=== PATIENT | female | born 1965 | race Hispanic/Latino ===

== ENCOUNTER 2020-11-20 10:16 | Emergency (ER) | payer BC, SELFPAY ==
--- OUTSIDE RECORDS SUMMARY | 2020-11-20 10:19 | XMS REPORT | Continuity of Care Document ---
:1965 Author Organization [facility] t Address [address] [place] [address] Care Team Providers Name Role Phone Unavailable Unavailable Unavailable Problems This patient has no known problems. Allergies, Adverse Reactions, Alerts This patient has no known allergies or adverse reactions. Medications Ordered Filled Start Stop Current Ordering Indication Dosage Frequency Signature Comments Components Source Medication Medication Date Date Medication? Clinician (SIG) Name Name Labetalol Labetalol Yes River [address] [facility] HCl HCl [facility] Lisinopril/ Lisinopril/ Yes River [address] [facility] Hctz Hctz Johnson once daily [facility] Multivitami Multivitami Yes River not [facility] n n Johnson defined [facility] Procedures This patient has no known procedures. Encounters Start End Encounter Admission Attending Care Care Encounter Source Date/Time Date/Time Type Type Clinicians Facility Department ID 2020-07-06 2020-07-06 Outpatient [facility] [id number] [facility] 2020-06-14 2020-06-14 Out[facility] [id number] [facility] 2019-10-27 2019-10-27 [facility] [id number] [facility] 11:51:00 11:51:00 [facility] 2019-10-25 2019-10-25 [facility] [id number] [facility] 09:30:00 09:30:00 [facility] [place] Clin[facility] 2019-10-24 2019-10-24 [facility] [id number] [facility] 15:45:00 15:45:00 [facility] [place] [facility] 2019-10-24 2019-10-24 [facility] [id number] [facility] 14:40:00 14:40:00 [facility] [place] [facility] 2019-08-23 2019-08-23 [facility] [id number] [facility] 13:30:00 13:30:00 [facility] [place] [facility] Results This patient has no known results.
[2020-11-20 11:21] LABS: Absolute Lymphocytes (CBC) 2.4 K/uL (0.7-4.9); Basophils % 0.7 % (0-1.3); Hematocrit 40.7 % (36.0-45.0); Lymphocytes % 17.8 % (15.3-44.8); MPV 8.1 fL (7.6-11.3); RBC Red Blood Cell Count 4.66 M/uL (3.86-4.86)
[2020-11-20] MEDS ORDERED: MAGNES/ALUMIN/SIMET 30ML UCUP ONE (11:23)
[2020-11-20] MEDS ORDERED: ONDANSETRON 4 MG/2 ML VIAL ONE (11:23)
[2020-11-20] MEDS ORDERED: LIDOCAINE VISCOUS 2% SOLN 15 ML UDC ONE (11:23)
[2020-11-20] MEDS ORDERED: PANTOPRAZOLE 40 MG INJ ONE (11:23)
[2020-11-20 11:37] LABS: Albumin 3.7 g/dL (3.4-5.0); Bilirubin Direct 0.1 mg/dL (0-0.2); Bilirubin Total 0.7 mg/dL (0.2-1.0); Potassium 3.7 mmol/L (3.5-5.1); Protein, Total 7.6 g/dL (6.4-8.2)
--- NOTE | 2020-11-20 11:59 | RAD REPORT ---
EXAM DESCRIPTION: CT - Abdomen Pelvis W Contrast - 11/20/2020 11:28 am CLINICAL HISTORY: ABD PAIN COMPARISON: No comparisons TECHNIQUE: Biphasic, helical CT imaging of the abdomen and pelvis was performed following 100 ml non -ionic IV contrast. No oral contrast administered. All CT scans are performed using dose optimization technique as appropriate and may include automated exposure control or mA/KV adjustment according to patient size. FINDINGS: No suspicious findings in the lung bases. Liver shows a borderline to mild diffuse fatty infiltration pattern with no focal liver lesion. No ca psular nodularity. No portal vein abnormality seen. Spleen and pancreas show no suspicious findings p eer cholecystectomy clips present with no biliary tree dilatation. Symmetric renal function is seen with no hydronephrosis or suspicious renal mass. No pyelonephritis o r acute parenchymal process. Small cysts are present lower pole of each kidney. Urinary bladder is fu lly contracted limiting assessment. No adrenal abnormalities. No uterine or ovarian abnormality. No stomach or small bowel abnormality. Appendix is normal. Patient has mild to moderate sigmoid diver ticulosis without sigmoid diverticulitis. A 5 x 3 centimeter sessile focus of soft tissue is present in the right upper quadrant peritoneal fat between the hepatic flexure of the colon and the liver. This does not appear to be part of a colon w all mass. No comparison imaging is available. Scarring from the cholecystectomy is possible though th is is relatively distant and the gallbladder fossa is pristine. Liver origin is not suspected. This c ould be extraluminal infectious/inflammatory stranding from the current or prior inflammatory bowel p rocess. No free air, free fluid or pneumatosis. No hernia, mass or bulky lymphadenopathy. No suspicious bony findings. IMPRESSION: The patient has an unusual 5 x 3 sessile area of soft tissue position between the hepati c flexure of the colon and the liver. No air or abscess. This could be infectious/ inflammatory stranding from a prior colitis or diverticulitis. Stranding re lated to a small contained perforation would be possible. The wall of the adjacent colon does not ida ear thickened to suggest mass. A small fistula tract cannot be excluded. No finding to suspect the liver is in origin for the right upper quadrant finding. This is probably 2 distant to be related to the prior cholecystectomy.
--- NOTE | 2020-11-20 13:39 | ER ---
Nurse's Notes [facility] Name: Jocelyn White Age: 55 yrs Sex: Female : 1965 Arrival Date: 11/20/2020 Time: 10:20 Bed 17 Private MD: River Johnson Diagnosis: Upper abdominal pain, unspecified;Gastritis, unspecified, without bleeding Presentation: 11/20 10:54 Chief complaint: Patient states: "My stomach began hurting yesterday and it started vg1 getting worse last night; it may have been something I ate.". Coronavirus screen: Client denies travel out of the [place] in the last 14 days. Ebola Screen: Patient negative for fever greater than or equal to 101.5 degrees Fahrenheit, and additional compatible Ebola Virus Disease symptoms. Initial Sepsis Screen: Does the patient meet any 2 criteria? No. Patient's initial sepsis screen is negative. Does the patient have a suspected source of infection? No. Patient's initial sepsis screen is negative. Risk Assessment: Do you want to hurt yourself or someone else? Patient reports no desire to harm self or others. Onset of symptoms was November 19, 2020. 10:54 Method Of Arrival: Ambulatory vg1 10:54 Acuity: RADHA 3 vg1 Triage Assessment: 10:55 General: Appears in no apparent distress. comfortable, Behavior is calm, cooperative. vg1 Pain: Complains of pain in epigastric area Pain currently is 7 out of 10 on a pain scale. Pain began 1 day ago. Noted to be grimacing, guarding. EENT: No signs and/or symptoms were reported regarding the EENT system. Neuro: Level of Consciousness is awake, alert, obeys commands, Oriented to person, place, time, situation. Cardiovascular: Patient's skin is warm and dry. Respiratory: Airway is patent Respiratory effort is even, unlabored. GI: Abdomen is flat, non-distended, Bowel sounds present X 4 quads. Reports nausea, vomiting. : No signs and/or symptoms were reported regarding the genitourinary system. Derm: Skin is intact, is healthy with good turgor. Musculoskeletal: Circulation, motion, and sensation intact. Historical: - Allergies: 10:55 No Known Allergies; vg1 - Home Meds: 10:55 Omeprazole Oral [Active]; Lisinopril Oral [Active]; Labetalol Oral [Active]; vg1 - PMHx: 10:55 Hypertensive disorder; vg1 - PSHx: 10:58 Cholecystectomy; vg1 - Immunization history:: Adult Immunizations up to date, Client reports receiving the 2nd dose of the Covid vaccine. - Social history:: Smoking status: Patient denies any tobacco usage or history of. - Family history:: not pertinent. - Hospitalizations: : No recent hospitalization is reported. Screenin:58 Abuse screen: Denies threats or abuse. Nutritional screening: No deficits noted. vg1 Tuberculosis screening: No symptoms or risk factors identified. Fall Risk No fall in past 12 months (0 pts). No secondary diagnosis (0 pts). IV access (20 points). Ambulatory Aid- None/Bed Rest/Nurse Assist (0 pts). Gait- Normal/Bed Rest/Wheelchair (0 pts) Mental Status- Oriented to own ability (0 pts). Total Lackey Fall Scale indicates No Risk (0-24 pts). Assessment: 10:58 Reassessment: see triage. vg1 12:24 Reassessment: Patient appears in no apparent distress at this time. Patient and/or vg1 family updated on plan of care and expected duration. Pain level reassessed. Patient is alert, oriented x 3, equal unlabored respirations, skin warm/dry/pink. Stated ABD pain /. 13:23 Reassessment: Patient appears in no apparent distress at this time. Patient and/or vg1 family updated on plan of care and expected duration. Pain level reassessed. Patient is alert, oriented x 3, equal unlabored respirations, skin warm/dry/pink. 14:09 Reassessment: Pt up for d/c, currently awaiting for IV antibiotics to complete. vg1 14:22 Reassessment: Patient appears in no apparent distress at this time. Patient and/or vg1 family updated on plan of care and expected duration. Pain level reassessed. Patient is alert, oriented x 3, equal unlabored respirations, skin warm/dry/pink. Pt c/o headache; provider notified. Vital Signs: 10:54 BP 148 / 98; Pulse 108; Resp 16; Temp 100.0; Pulse Ox 98% ; Weight 72.57 kg; Height 5 vg1 ft. 6 in. (167.64 cm); Pain 7/10; 12:25 BP 157 / 104; Pulse 80; Resp 16; Pulse Ox 97% on R/A; vg1 13:15 BP 152 / 97; Pulse 102; Resp 20; Pulse Ox 97% on R/A; vg1 16:00 BP 145 / 91; Pulse 90; Resp 16; Pulse Ox 100% on R/A; vg1 10:54 Body Mass Index 25.82 (72.57 kg, 167.64 cm) vg1 ED Course: 10:20 Patient arrived in ED. ds1 10:20 River Johnson DO is Private Physician. ds1 10:47 Yang Tinsley MD is Attending Physician. rn 10:47 Peggy Aguirre RN is Primary Nurse. vg1 10:55 Triage completed. vg1 10:55 Arm band placed on. vg1 10:58 Patient has correct armband on for positive identification. Placed in gown. Bed in low vg1 position. Call light in reach. Side rails up X 1. 11:09 Initial lab(s) drawn, by me, sent to lab. Inserted saline lock: 20 gauge in right vg1 antecubital area, using aseptic technique. Blood collected. 11:21 EKG done, by ED staff, reviewed by Yang Tinsley MD. dh3 11:28 CT Abd/Pelvis - IV Contrast Only In Process Unspecified. EDMS 13:38 Johnathan Shea MD is Referral Physician. rn 15:58 No provider procedures requiring assistance completed. IV discontinued, intact, vg1 bleeding controlled, No redness/swelling at site. Pressure dressing applied. Administered Medications: 11:05 Drug: GI Cocktail without - (Maalox Suspension 30 ml, Lidocaine Liquid 2 % 15 vg1 ml) Route: PO; 12:24 Follow up: Response: Marked relief of symptoms; Pain is decreased vg1 11:11 Drug: Zofran (Ondansetron) 4 mg Route: IVP; Site: right antecubital; vg1 12:24 Follow up: Response: Marked relief of symptoms vg1 11:13 Drug: ProTONIX (pantoprazole) 40 mg Route: IVP; Site: right antecubital; vg1 12:24 Follow up: Response: Marked relief of symptoms vg1 14:21 Drug: Flagyl (metroNIDAZOLE) 500 mg Volume: 100 ml; Route: IVPB; Rate: 200 ml/hr; vg1 Infused Over: 30 mins; Site: right antecubital; 14:53 Follow up: IV Status: Completed infusion; IV Intake: 100ml vg1 14:54 Drug: Cipro (ciprofloxacin) 400 mg Volume: 200 ml; Route: IVPB; Infused Over: 60 mins; vg1 Site: right antecubital; 15:57 Follow up: IV Status: Completed infusion; IV Intake: 200ml vg1 Intake: 14:53 IV: 100ml; Total: 100ml. vg1 15:57 IV: 200ml; Total: 300ml. vg1 Outcome: 13:39 Discharge ordered by MD. rn 15:58 Discharged to home ambulatory, with family. vg1 15:58 Condition: stable 15:58 Discharge instructions given to patient, Instructed on discharge instructions, follow up and referral plans. medication usage, Demonstrated understanding of instructions, follow-up care, medications, Prescriptions given X 3. 16:00 Patient left the ED. vg1 Signatures: Dispatcher [employer] [facility] Radha Rae ds1 Yang Tinsley MD MD rn Herrera, Deanna 3 Peggy Aguirre, RN RN vg1 Corrections: (The following items were deleted from the chart) 10: 10:55 Allergies: Aspirin; vg1 vg1 10:58 10:55 PSHx: None; vg1 vg1
--- NOTE | 2020-11-20 13:39 | EDPHYS ---
Physician Documentation [facility] Name: Jocelyn White Age: 55 yrs Sex: Female : 1965 Arrival Date: 11/20/2020 Time: 10:20 Bed 17 Private MD: River Johnson ED Physician Yang Tinsley HPI: 11/20 10:54 This 55 yrs old Female presents to ER via Unassigned with complaints of rn Abdominal Pain. 10:54 The patient presents with abdominal pain in the epigastric area. Onset: The rn symptoms/episode began/occurred last night. The symptoms do not radiate. Associated signs and symptoms: Pertinent positives: nausea and vomiting, Pertinent negatives: blood in stools, chest pain, constipation, diarrhea, dysuria, fever, hematuria, shortness of breath, vomiting blood. The symptoms are described as achy, crampy. Modifying factors: The symptoms are alleviated by antacids, the symptoms are aggravated by touching the area. Severity of pain: At its worst the pain was moderate in the emergency department the pain has improved. The patient has experienced similar episodes in the past. The patient has not recently seen a physician. Reports hx of ulcers, + pain since last night, assoc with nausea and vomiting, worse with food, + s/p cholecystectomy in past, non-drinker, no hx of pancreatitis. . Historical: - Allergies: 10:55 No Known Allergies; vg1 - Home Meds: 10:55 Omeprazole Oral [Active]; Lisinopril Oral [Active]; Labetalol Oral [Active]; vg1 - PMHx: 10:55 Hypertensive disorder; vg1 - PSHx: 10:58 Cholecystectomy; vg1 - Immunization history:: Adult Immunizations up to date, Client reports receiving the 2nd dose of the Covid vaccine. - Social history:: Smoking status: Patient denies any tobacco usage or history of. - Family history:: not pertinent. - Hospitalizations: : No recent hospitalization is reported. ROS: 10:54 Constitutional: Negative for fever, chills, and weight loss, Eyes: Negative for injury, rn pain, redness, and discharge, Neck: Negative for injury, pain, and swelling, Cardiovascular: Negative for chest pain, palpitations, and edema, Respiratory: Negative for shortness of breath, cough, wheezing, and pleuritic chest pain, Abdomen/GI: Negative for diarrhea, and constipation, Back: Negative for injury and pain, : Negative for injury, bleeding, discharge, and swelling, MS/Extremity: Negative for injury and deformity, Skin: Negative for injury, rash, and discoloration, Neuro: Negative for headache, weakness, numbness, tingling, and seizure. Exam: 10:54 Constitutional: This is a well developed, well nourished patient who is awake, alert, rn and in no acute distress. Head/Face: Normocephalic, atraumatic. Eyes: Periorbital areas with no swelling, redness, or edema. Cardiovascular: Tachycardic, regular. No pulse deficits. Respiratory: No increased work of breathing, no retractions or nasal flaring. Abdomen/GI: soft, + epigastric tenderness, no rebound Skin: Warm, dry MS/ Extremity: Pulses equal, no cyanosis. Neuro: Awake and alert, GCS 15 Vital Signs: 10:54 BP 148 / 98; Pulse 108; Resp 16; Temp 100.0; Pulse Ox 98% ; Weight 72.57 kg; Height 5 vg1 ft. 6 in. (167.64 cm); Pain 7/10; 12:25 BP 157 / 104; Pulse 80; Resp 16; Pulse Ox 97% on R/A; vg1 13:15 BP 152 / 97; Pulse 102; Resp 20; Pulse Ox 97% on R/A; vg1 16:00 BP 145 / 91; Pulse 90; Resp 16; Pulse Ox 100% on R/A; vg1 10:54 Body Mass Index 25.82 (72.57 kg, 167.64 cm) vg1 MDM: 10:47 Patient medically screened. rn 13:36 Differential diagnosis: gastritis, gastroesophageal reflux disease, non-specific abd rn pain, pancreatitis, Peptic Ulcer Disease. Data reviewed: vital signs, nurses notes, lab test result(s), radiologic studies, CT scan, and as a result, I will discharge patient. Counseling: I had a detailed discussion with the patient and/or guardian regarding: the historical points, exam findings, and any diagnostic results supporting the discharge/admit diagnosis, lab results, radiology results, the need for outpatient follow up, to return to the emergency department if symptoms worsen or persist or if there are any questions or concerns that arise at home. Response to treatment: the patient's symptoms have markedly improved after treatment, and as a result, I will discharge patient. Special discussion: I discussed with the patient/guardian in detail that at this point there is no indication for admission to the hospital. It is understood, however, that if the symptoms persist or worsen the patient needs to return immediately for re-evaluation. Based on the history and exam findings, there is no indication for further emergent testing or inpatient evaluation. I discussed with the patient/guardian the need to see the general surgeon for further evaluation of the symptoms. ED course: Pt improved, no abd pain after GI cocktail. Consulted with Dr. Shea given strange CT read of unknown significance. Dr. Shea feels is more inflammatory/infectious vs possible omental infarct, recommends cipro/flagyl/antacids, and f/u in clinic tomorrow, plans on re-scanning her abdomen after abx to see if responds or needs diagnostic lap. Pt comfortable with this plan and feels better. already on daily antacids. . 11/20 10:53 Order name: Basic Metabolic Panel; Complete Time: 12:15 rn 11/20 10:53 Order name: CBC with Diff; Complete Time: 11:31 rn 11/20 10:53 Order name: Hepatic Function; Complete Time: 12:15 rn 11/20 10:53 Order name: Lipase; Complete Time: 12:15 rn 11/20 10:53 Order name: CT Abd/Pelvis - IV Contrast Only; Complete Time: 12:15 rn 11/20 11:36 Order name: CREATININE WHOLE BLOOD; Complete Time: 12:15 EDDC 11/20 10:53 Order name: IV Saline Lock; Complete Time: 11:16 rn 11/20 10:53 Order name: Labs collected and sent; Complete Time: 11:16 rn 11/20 10:53 Order name: EKG; Complete Time: 10:54 rn 11/20 10:53 Order name: EKG - Nurse/Tech; Complete Time: 11:15 rn Administered Medications: 11:05 Drug: GI Cocktail without - (Maalox Suspension 30 ml, Lidocaine Liquid 2 % 15 vg1 ml) Route: PO; 12:24 Follow up: Response: Marked relief of symptoms; Pain is decreased vg1 11:11 Drug: Zofran (Ondansetron) 4 mg Route: IVP; Site: right antecubital; vg1 12:24 Follow up: Response: Marked relief of symptoms vg1 11:13 Drug: ProTONIX (pantoprazole) 40 mg Route: IVP; Site: right antecubital; vg1 12:24 Follow up: Response: Marked relief of symptoms vg1 14:21 Drug: Flagyl (metroNIDAZOLE) 500 mg Volume: 100 ml; Route: IVPB; Rate: 200 ml/hr; vg1 Infused Over: 30 mins; Site: right antecubital; 14:53 Follow up: IV Status: Completed infusion; IV Intake: 100ml vg1 14:54 Drug: Cipro (ciprofloxacin) 400 mg Volume: 200 ml; Route: IVPB; Infused Over: 60 mins; vg1 Site: right antecubital; 15:57 Follow up: IV Status: Completed infusion; IV Intake: 200ml vg1 Disposition Summary: 11/20/20 13:39 Discharge Ordered Location: Home rn Problem: new rn Symptoms: have improved rn Condition: Stable rn Diagnosis - Upper abdominal pain, unspecified rn - Gastritis, unspecified, without bleeding rn Followup: rn - With: Johnathan Shea MD - When: Tomorrow - Reason: Further diagnostic work-up, Recheck today's complaints, Continuance of care, Re-evaluation by your physician Discharge Instructions: - Discharge Summary Sheet rn - Abdominal Pain, Adult rn - Gastritis, Adult rn Forms: - Medication Reconciliation Form rn - Thank You Letter rn - 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 - Prescription Opioid Use rn - Work release form vg1 Prescriptions: - Flagyl 500 mg Oral Tablet - take 1 tablet by ORAL route every 8 hours for 10 days; 30 tablet; Refills: 0, rn Product Selection Permitted - Cipro 500 mg Oral Tablet - take 1 tablet by ORAL route every 12 hours for 10 days; 20 tablet; Refills: 0, rn Product Selection Permitted - Tramadol 50 mg Oral Tablet - take 1 tablet by ORAL route every 8 hours as needed; 15 tablet; Refills: 0, rn Product Selection Permitted Signatures: Dispatcher [employer] Yang Kraft MD MD rn Garcia, Victoria, RN RN vg1 Corrections: (The following items were deleted from the chart) 10:57 10:55 Allergies: Aspirin; vg1 vg1 10:58 10:55 PSHx: None; vg1 vg1
[2020-11-20] MEDS ORDERED: METRONIDAZOLE 500mg IVPB 500 MG/100 ML BAG IV ONE (14:37)
[2020-11-20] MEDS ORDERED: CIPROFLOXACIN 400mg IV 400 MG/200 ML BAG IV ONE (14:37)
[2020-11-20 16:07] VITALS: TEMP 100
[2020-11-20 16:12] VITALS: BP 145/91; O2SAT 100
--- NOTE | 2020-11-21 16:37 | EKG ---
Test Date: 2020-11-20 Test Time: 11:10:49 Border Inspector: SHRUTHI MEASUREMENT RESULTS: Intervals: Rate: 106 ME: 138 QRSD: 124 QT: 362 QTc: 480 [place]: P: 33 ME: 138 QRS: 151 T: 27 INTERPRETIVE STATEMENTS: Sinus tachycardia Right bundle branch block Abnormal ECG Compared to ECG 12/17/1993 16:09:00 Right bundle-branch block now present Sinus bradycardia no longer present Electronically Signed On 11-21-20 16:33:16 CDT by Campbell Zhong
== END 2020-11-20 16:00 | disposition home or self-care (01) ==
LOC: ER 10:16
DX: K29.70 Gastritis, unspecified, without bleeding (principal); I10 Essential (primary) hypertension
CPT/HCPCS: 36415; 74177; 80048; 80076; 82565; 83690; 85025; 93005; 96365; 96367; 96375; 99284; C9113; J0744; J2405; Q9967

== ENCOUNTER 2022-01-01 19:40 | Emergency (ER) | payer SELFPAY ==
--- OUTSIDE RECORDS SUMMARY | 2022-01-01 19:42 | XMS REPORT | Continuity of Care Document ---
:1965 Author Organization [facility] t Address 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 2-19 [place] of hypertensi hypertens[place] Medical antepartum antepartum Br anch Allergies, Adverse Reactions, Alerts Allergy Allergy Status Severity Reaction(s) Onset Inactive Treating Comm ents Source Name Type Date Date Clinician NO KNOWN Drug Active Univers ALLERGIE Class ity of [facility] Social History Social Habit Start Date Stop Date Quantity Comments Source Exposure to Not sure [facility] SARS-CoV-2 (event) Medica l Branch Sex Ass[birth year] [facility] 00:00:00 00:00:00 Medical Branch Smoking Status Start Date Stop Date Source Unknown if ever smoked [facility] Former smoker 2021-07-16 00:00:00 2021-07-16 00:00:00 [facility] Medications Ordered Filled Start Stop Current Ordering Indication Dosage Frequency Signature Comments Components Source Medication Medication Date Date Medication? Clinician (SIG) Name Name neomycin-po Yes PRN, Zachariah fulton lymyxin-dex 07-17 Starting ity of amethasone 17:53: on Wed [place] (MAXITROL) 00 07/17/21 at Med ical 3.5 1153, Branch mg/g-10,000 Until unit/g-0.1 Discontinu % ed, ophthalmic Routine, ointment Intra-op DUOVISC Yes PRN, Univers (DUOVISC 07-17 Starting ity of VISCO 17:53: on Thu [place] ELASTIC) 3 00 07/17/21 at Med ical %-4 %(0.5 1153, Branch mL) 1 % Until (0.55 mL) Discontinu intraocular ed, injection Routine, Intra-op dexamethaso Yes PRN, Zachariah fulton ne 07-17 Starting ity of (DECADRON 17:53: on Wed [place] PHOSPHATE) 00 07/17/21 at Med ical injection 1153, Branch Until Discontinu ed, Routine, Intra-op neomycin-po 2021- No [facility] lymyx[facility]-dex 07-17 Starting ity of amethasone 17:53: 20[place]38 [place] (MAXITROL[place] 00 :30 07/17/21 at Med ical 3.5 1153, Branch mg/g-10,000 Until Thu unit/g-0.1 07/17/21 at % 1438, ophthalmic Routine, ointment Intra-op DUOVISC 2021- No PRN, Univers (DUOVISC 07-17 Starting ity of VISCO 17:53: 20:38 on Thu [place] ELASTIC) 3 00 :30 07/17/21 at Med ical %-4 %(0.5 1153, Branch mL) 1 % Until Wed (0.55 mL) 07/17/21 at intraocular 1438, injection Routine, Intra-op dexamethaso 2021- No PRN, Unive rs ne 07-17 Starting ity of (DECADRON 17:53: 20:38 on Thu PHOSPHATE) 00 :30 07/17/21 at [facility] ical injection 1153, Branch Until Thu07/17/21 at 1438, Routine, Intra-op ceFAZolin Yes PRN, Univers (ANCEF) 07-17 Starting ity of injection 17:52: on Thu 00 07/17/21 at [facility] 1152, Branch Until Discontinu ed, ALBA, Intra-op carbachoL Yes PRN, Univers (MIOSTAT) 07-17 Starting ity of 0.01 % 17:52: on Thu intraocular 00 07/17/21 at [place] dical injection 1152, Branch Until Discontinu ed, Routine, Intra-op ceFAZolin 2021- No PRN, Univers (ANCEF) 07-17 Starting ity of injection 17:52: 20:38 on Thu 00 :30 07/17/21 at [facility] 1152, Branch Until Thu07/17/21 at 1438, ALBA, Intra-op carbachoL 2021- No PRN, Univers (MIOSTAT) 07-17 Starting ity o f 0.01 % 17:52: 20:38 on Thu intraocular 00 :30 07/17/21 at [place] dical injection 1152, Branch Until Thu07/17/21 at 1438, Routine, Intra-op EPINEPHrine Yes PRN, Univer s 1:1,000 (1 07-17 Starting ity o f mg/mL) 17:51: on Thu (ADRENALIN) 00 07/17/21 at [place] dical injection 1151, Branch Until Discontinu ed, Routine, Intra-op EPINEPHrine 2021- No PRN, Unive rs 1:1,000 (1 07-17 Starting ity of mg/mL) 17:51: 20:38 on Thu (ADRENALIN) 00 :30 07/17/21 at [place] dical injection 1151, Branch Until Thu07/17/21 at 1438, Routine, Intra-op sodium Yes PRN, Univers chloride 07-17 Starting ity of (NS) 17:50: on Thu injection 00 07/17/21 at [facility] 1150, Branch Until Discontinu ed, Routine, Intra-op sodium 2021- No PRN, Univers chloride 07-17 Starting ity of (NS) 17:50: 20:38 on Wed [place] injection 00 :30 07/17/21 at [facility] 1150, Branch Until Thu07/17/21 at 1438, Routine, Intra-op trypan blue Yes PRN, Univer s (VISION 07-17 Starting ity of BLUE) 0.06 17:47: on Wed [place] % syringe 00 07/17/21 at [facility] 1147, Branch Until Discontinu ed, Routine, Intra-op trypan blue 2021- No PRN, Unive rs (VISION 07-17 Starting ity of BLUE) 0.06 17:47: 20:38 [place] Thu [place] % syringe 00 :30 07/17/21 at [facility] 1147, Branch Until Thu07/17/21 at 1438, Routine, Intra-op water for Yes PRN, Univers irrigation 07-17 Starting ity o f irrigation 17:43: on Thu [place] solution 00 07/17/21 at [facility] 1143, Branch Until Discontinu ed, Routine, Intra-op water for 2021- No PRN, Univers irrigation 07-17 Starting ity of irrigation 17:43: 20:38 [place] Thu [place] solution 00 :30 07/17/21 at [facility] 1143, Branch Until 07/17/21 at 1438, Routine, Intra-op balanced Yes PRN, Univers salt irrig 07-17 Starting ity o f soln comb1 17:40: on Wed [place] (BSS PLUS) 00 07/17/21 at Med ical ophthalmic 1140, Branch solution Until 500 mL bag Discontinu ed, Routine, Intra-op balanced 2021- No PRN, Univers salt irrig 07-17 Starting ity of soln comb1 17:40: 20:38 [place] (BSS PLUS) 00 :30 07/17/21 at [facility] ical ophthalmic 1140, Branch solution Until Wed 500 mL bag 07/17/21 at 1438, Routine, Intra-op Hyaluronida Yes PRN, Univer s se, Human 07-17 Starting ity of Recomb. 17:37: on Thu (HYLENEX) 00 07/17/21 at [facility] injection 1137, Branch Until Discontinu ed, Routine, Intra-op eye block Yes PRN, Univers syringe 07-17 Starting ity o f mL 17:37: on Thu 00 07/17/21 at [place] [id number], Branch Until Discontinu ed, Intra-op Hyaluronida 2021- No PRN, Unive rs se, Human 07-17 Starting ity o f Recomb. 17:37: 20:38 on Thu (HYLENEX) 00 :30 07/17/21 at [facility] injection 1137, Branch Until Thu07/17/21 at 1438, Routine, Intra-op eye block 2021- No PRN, Univers syringe 11 07-17 Starting ity of mL 17:37: 20:38 on Thu 00 :30 07/17/21 at [place] [id number], Branch Until Thu07/17/21 at 1438, Intra-op lactated 2021- No 1000mL at 42 [facility] ringers IV 07-17 mL/hr, ity of infusion 16:30: 16:22 1,000 mL, [place] as 1,000 mL 00 :00 IV Medical Infusion, Branch ONCE, 1 dose, On Thu07/17/21 at 1030, Routine, DSU Pre-op lactated 2021- No 1000mL at 42 [facility] ringers IV 07-17 mL/hr, ity of infusion 16:30: 16:22 1,000 mL, [place] as 1,000 mL 00 :00 IV Medical Infusion, Branch ONCE, 1 dose, On Thu07/17/21 at 1030, Routine, DSU Pre-op cyclopent 2021- No .5mL 0.5 mL, Univ ers 1%-tropic 07-17 Left Eye, ity of 1%-phenyl 15:45: 15:37 ONCE, 1 [place] 2.5%-ketor 00 :00 dose, On Medic al 0.5% Thu Branch (MYDRIATIC 07/17/21 at #5) 0945, ophthalmic Routine, solution DSU Pre-op syringe 0.5 mL cyclopent No .5mL 0.5 mL, Univ ers 1%-tropic 07-17 Left Eye, ity of 1%-phenyl 15:45: 15:37 ONCE, 1 [place] 2.5%-ketor 00 :00 dose, On Medic al 0.5% [facility] (MYDRIATIC 07/17/21 at #5) 0945, ophthalmic Routine, solution DSU Pre-op syringe 0.5 mL LABETALOL Yes None Univers ORAL -23 Entered ity of 12:38: [address] LISINOPRIL Yes 10mg Take 10 mg U nivers ORAL 2-23 by mouth ity of 12:38: daily. [address] LABETALOL Yes None Univers ORAL - Entered ity of 12:38: [address] LISINOPRIL Yes 10mg Take 10 mg U nivers ORAL -23 by mouth ity of 12:38: daily. [address] LABETALOL Yes None Univers ORAL 3-19 Entered ity of 15:46: [address] LABETALOL Yes 1 Tab Oral Un diane 100 MG ORAL 1-16 Q12H ity of TAB 00:00: [address] LABETALOL Yes 1 Tab Oral Un diane 100 MG ORAL 1-16 Q12H ity of TAB 00:00: [address] LABETALOL Yes 1 Tab Oral Un diane 100 MG ORAL 1-16 Q12H ity of TAB 00:00: [address] IBUPROFEN Yes Take one Univ ers 600 MG ORAL 1-13 tablet by ity of TAB 13:13: mouth [place] 15 every six Medical hours as Branch needed for pain IBUPROFEN Yes Take one Univ ers 600 MG ORAL 1-13 tablet by ity of TAB 13:13: mouth [place] 15 every six Medical hours as Branch needed for pain IBUPROFEN Yes Take one Univ ers 600 MG ORAL 1-13 tablet by ity of TAB 13:13: mouth [place] 15 every six Medical hours as Branch needed for pain HYDROCODONE Yes Take one Un diane -ACETAMINOP 1-13 to two ity of HEN 5-325 13:13: tablets [place] MG ORAL TAB 14 mouth Medical every six Branch hours as needed for pain HYDROCODONE Yes Take one Un diane -ACETAMINOP 1-13 to two ity of HEN 5-325 13:13: tablets [place] MG ORAL TAB 14 mouth Medical every six Branch hours as needed for pain HYDROCODONE Yes Take one Un diane -ACETAMINOP 1-13 to two ity of HEN 5-325 13:13: tablets [place] MG ORAL TAB 14 mouth Medical every six Branch hours as needed for pain Yes Take one Unive rs VIT-IRON 1-13 tablet by ity of FUMARATE-FA 00:00: mouth [place] 60-1 MG 00 daily Medical ORAL TAB Branch DOCUSATE Yes Take one Unive rs CALCIUM 240 1-13 capsule by it y of MG ORAL CAP 00:00: mouth [place] 00 daily as Medical needed for Branch constipati on FERROUS Yes Take one Univer s SULFATE 300 1-13 tablet by ity of (60) MG 00:00: mouth [place] ORAL TAB 00 twice Medical daily Branch Yes Take one Unive rs VIT-IRON 1-13 tablet by ity of FUMARATE-FA 00:00: mouth [place] 60-1 MG 00 daily Medical ORAL TAB Branch DOCUSATE Yes Take one Unive rs CALCIUM 240 1-13 capsule by it y of MG ORAL CAP 00:00: mouth [place] 00 daily as Medical needed for Branch constipati on FERROUS Yes Take one Univer s SULFATE 300 1-13 tablet by ity of (60) MG 00:00: mouth [place] ORAL TAB 00 twice Medical daily Branch Yes Take one Unive rs VIT-IRON 1-13 tablet by ity of FUMARATE-FA 00:00: mouth [place] 60-1 MG 00 daily Medical ORAL TAB Branch DOCUSATE Yes Take one Unive rs CALCIUM 240 1-13 capsule by it y of MG ORAL CAP 00:00: mouth [place] 00 daily as Medical needed for Branch constipati on FERROUS Yes Take one Univer s SULFATE 300 1-13 tablet by ity of (60) MG 00:00: mouth [place] ORAL TAB 00 twice Medical daily Branch Labetalol Labetalol Yes River 1 tablet Common HCl HCl Johnson [facility] Lisinopril/ Lisinopril/ Yes River 1 tablet Common Hctz Hctz Johnson once daily [facility] Multivitami Multivitami Yes River not Common n n Johnson defined [facility] Immunizations Ordered Filled Immunization Date Status Comments Sourc e Immunization Name Name [facility] 2006-06-08 Completed University 00:00:00 [facility] 2006-06-08 Completed University 00:00:00 [facility] 2006-06-08 Completed [facility] 00:00:00 [facility] Vital Signs Vital Name Observation Time Observation Value Comments Source Systolic blood 2021-07-17 18:25:00 149 mm[Hg] Univer sity of [facility] Diastolic blood 2021-07-17 18:25:00 73 mm[Hg] Unive rsity of [facility] Heart rate 2021-07-17 18:25:00 62 /min [facility] Respiratory rate 2021-07-17 18:25:00 15 /min [facility] Oxygen saturation in 2021-07-17 18:25:00 97 /min [facility] Arterial blood by [facility] Pulse oximetry Branch Body temperature 2021-07-17 18:08:00 36.11 Mei [facility] Body height 2021-07-16 18:15:[address] [facility] Body weight 2021-07-16 18:15:[address] [facility] BMI 2021-07-16 18:15:00 26.63 kg/m2 [facility] Systolic blood 2021-07-17 15:37:00 113 mm[Hg] Univer sity of [facility] Diastolic blood 2021-07-17 15:37:00 76 mm[Hg] Unive rsity of [facility] Heart rate 2021-07-17 15:37:00 68 /min [facility] Body temperature 2021-07-17 15:37:00 37 Mei [facility] 2021-07-17 15:37:00 18 /min [facility] Oxygen saturation in 2021-07-17 15:37:00 97 /min [facility] Arterial blood by [facility] Pulse oximetry Branch Body weight 2021-07-16 18:15:[address] [facility] BMI 2021-07-16 18:15:00 26.63 kg/m2 [facility] Body height 2021-07-16 18:15:[address] [facility] Procedures Procedure Date / Time Performing Source Performed Clinician PHACOEMULSIFICATION OF 2021-07-17 [facility] CATARACT WITH INTRAOCULAR 17:24:00 [facility] LENS IMPLANT Encounters Start End Encounter Admission Attending Care Care Encounter Source Date/Time Date/Time Type Type Clinicians Facility Department ID 2021-06-19 Outpatient Johnson, STLMLC STLMLC [id number] Common 14:23:23 River 314[address] [facility] 2021-06-19 Outpatient Johnson, STLMLC STLMLC [id number] Common 14:12:47 River 30767 [facility] 2021-06-19 Outpatient Johnson, STLMLC STLMLC [id number] Common 13:20:15 River 84323 [facility] 2021-06-19 Outpatient Johnson, STLMLC STLMLC [id number] Common 12:29:42 River 94378 [facility] 2021-06-19 Outpatient Johnson, STLMLC STLMLC [id number] Common 11:24:59 River 64758 [facility] 2021-06-19 Outpatient Johnson, STLMLC STLMLC [id number] Common 11:16:25 River 90176 [facility] 2021-09-05 2021-09-05 ambulatory STLMLC STLMLC [id number] Common 00:00:00 00:00:00 [facility] 2021-07-17 2021-07-17 Outpatient R UMESH CAM OPH [id number] Univers 09:31:00 12:33:00 JAY mcintyre [facility] 2021-07-17 2021-07-17 [facility] [id number] Univers 09:31:00 12:33:00 Encounter Jay Millie JOSEPHINE [id number] ity [id number] SURGICAL [id number] [facility] 071 Branch 2021-07-17 2021-07-17 Surgery [facility] [id number] Univers 10:55:00 11:36:00 Jay Millie JOSEPHINE [id number] ity [id number] SURGICAL [id number] [facility] 020 Branch 2021-07-15 2021-07-15 Outpatient R [facility] [id number] Univers 16:00:00 16:00:00 [id number] [facility] 2021-07-15 2021-07-15 Outpatient R [facility] [id number] Univers 16:00:00 16:00:00 JAY [facility] 2021-07-12 2021-07-12 Compliance And Control Analyst Jennifer, Adc Lab Main [facility] [id number] Univers 16:15:00 16:30:00 Visit Jay Cam Millie JOSEPHINE [id number] [id number] PROFESSIO [id number] [facility] [address] 2021-07-12 2021-07-12 Outpatient R [facility] [id number] Univers 16:15:00 16:15:00 JAY [facility] 2021-05-03 2021-05-03 ambulatory STLMLC STLMLC [id number] Common 00:00:00 00:00:00 [facility] 2021-05-03 2021-05-03 ambulatory STLMLC STLMLC [id number] Common 00:00:00 00:00:00 [facility] 2021-04-04 2021-04-04 ambulatory STLMLC STLMLC [id number] Common 00:00:00 00:00:00 [facility] 2021-01-10 2021-01-10 Outpatient STLMLC STLMLC [id number] Common 00:00:00 00:00:00 [facility] 2020-07-06 2020-07-06 Outpatient STLMLC STLMLC [id number] Common 00:00:00 00:00:00 [facility] 2020-06-14 2020-06-14 Outpatient STLMLC STLMLC [id number] Common 00:00:00 00:00:00 [facility] 2019-10-27 2019-10-27 [facility] [id number] Common 11:51:00 11:51:[address] [facility] [address] [facility] 2019-10-25 2019-10-25 Out[facility] [id number] Common 09:30:00 09:30:[address] [facility] 2019-10-24 2019-10-24 [facility] [id number] Common 15:45:00 15:45:[address] [facility] 2019-10-24 2019-10-24 Out[facility] [id number] Common 14:40:00 14:40:[address] [facility] 2019-08-23 2019-08-23 Out[facility] [id number] Common 13:30:00 13:30:[address] [facility] Results This patient has no known results.
--- NOTE | 2022-01-01 20:07 | ER ---
Nurse's Notes [facility] Name: Jocelyn White Age: 56 yrs Sex: Female : 1965 Arrival Date: 01/01/2022 Time: 19:43 Bed Waiting Private MD: Diagnosis: ED Course: 01/01 19:43 Patient arrived in ED. bp1 Administered Medications: No medications were administered Outcome: 20:06 Patient left the ED. ld1 Signatures: Sharlene Bahena bp1 Shahnaz Pablo, RN RN ld1
== END 2022-01-01 20:06 | disposition left against medical advice (07) ==
LOC: ER 19:40
DX: Z02.9 Encounter for administrative examinations, unspecified (principal)

== ENCOUNTER 2022-01-02 11:30 | Emergency (ER) | payer SELFPAY ==
--- OUTSIDE RECORDS SUMMARY | 2022-01-02 11:34 | XMS REPORT | Continuity of Care Document ---
:1965 Author Organization [facility] t Address [address] [place] [address] Care Team Providers Name Role Phone River Johnson Primary Care Physician River Johnson Attending Clinician Unavailable JAY CAM Attending Clinician Unavailable Jay Cam MD Attending Clinician [place] Main Attending Clinician Unavailable JAY CAM [...] Drug Active Univers ALLERGIE Class ity of [facility] Social History Social Habit Start Date Stop Date Quantity Comments Source Exposure to Not sure [facility] SARS-CoV-2 (event) Medica l Branch Sex Assigned At [birth year] [facility] 00:00:00 00:00:00 Medical Branch Smoking Status Start Date Stop Date Source Unknown if ever smoked [facility] Former smoker 2021-07-16 00:00:00 2021-07-16 00:00:00 [facility] Medications Ordered Filled Start Stop Current [...] ed, Routine, Intra-op neomycin-po 2021- No PRN, Ewa lucio lymyxin-dex 07-17 Starting ity of amethasone [...] on Thu PHOSPHATE) 00 :30 07/17/[address] [facility] ical injection 1153, Branch Until Thu07/17/21 at 1438, Routine, Intra-op ceFAZolin Yes PRN, Univers (ANCEF) 07-17 Starting ity of injection 17:52: on Thu 00 07/17/21 at [facility] 1152, Branch Until Discontinu ed, ALBA, Intra-op carbachoL Yes PRN, Univers (MIOSTAT) 07-17 Starting ity of 0.01 % 17:52: on Thu intraocular 00 07/17/21 at [place] dical injection 1152, Branch Until Discontinu ed, Routine, Intra-op ceFAZolin 2021- No PRN, Univers (ANCEF) 07-17 Starting ity of injection 17:52: 20:38 on Thu 00 :30 07/17/21 at [facility] 1152, Branch Until Thu07/17/21 at 1438, ALBA, Intra-op carbachoL 2021-2021- No PRN, Univers (MIOSTAT) 07-17 Starting ity o f 0.01 % 17:52: 20:38 on Thu intraocular 00 :30 07/17/21 at [place] dical injection 1152, Branch Until Thu07/17/21 at 1438, Routine, Intra-op EPINEPHrine Yes PRN, Univer s 1:1,000 (1 07-17 Starting ity o f mg/mL) 17:51: on Thu (ADRENALIN) 00 07/17/21 at [place] dical injection 1151, Branch Until Discontinu ed, Routine, Intra-op EPINEPHrine 0 2021- No PRN, Unive rs 1:1,000 (1 07-17 Starting ity of mg/mL) 17:51: 20:38 on Thu (ADRENALIN) 00 :30 07/17/21 at [place] dical injection 1151, Branch Until Thu07/17/21 at 1438, Routine, Intra-op sodium 0 Yes PRN, Univers chloride 07-17 Starting ity of (NS) 17:50: on Wed [place] injection 00 07/17/21 at [facility] 1150, Branch Until Discontinu ed, Routine, Intra-op sodium 2021- No PRN, Univers chloride 07-17 Starting ity of (NS) 17:50: 20:38 on Thu [place] injection 00 :30 07/17/21 at [facility] 1150, Branch Until Thu07/17/21 at 1438, Routine, Intra-op trypan blue Yes PRN, Univer s (VISION 07-17 Starting ity of BLUE) 0.06 17:47: on Thu [place] % syringe 00 07/17/21 at [facility] 1147, Branch Until Discontinu ed, Routine, Intra-op trypan blue 2021- No PRN, Unive rs (VISION 07-17 Starting ity of BLUE) 0.06 17:47: 20:38 [place] Thu [place] % syringe 00 :30 07/17/21 at [facility] 1147, Branch Until 07/17/21 at 1438, Routine, Intra-op water for Yes PRN, Univers irrigation 07-17 Starting ity o f irrigation 17:43: on Thu [place] solution 00 07/17/21 at [facility] 1143, Branch Until Discontinu ed, Routine, Intra-op water for 2021- No PRN, Univers irrigation 07-17 Starting ity of irrigation 17:43: 20:38 [place] solution 00 :30 07/17/21 at [facility] 1143, Branch Until 07/17/21 at 1438, Routine, Intra-op balanced Yes PRN, Univers salt irrig 07-17 Starting ity o f soln comb1 17:40: on Thu [place] (BSS PLUS) 00 07/17/[address] [facility] ical ophthalmic 1140, Branch solution Until 500 mL bag Discontinu ed, Routine, Intra-op balanced 2021- No PRN, Univers salt irrig 07-17 Starting ity of soln comb1 17:40: 20:38 [place] (BSS PLUS[place] 00 :30 07/17/[address] [facility] ical ophthalmic 1140, Branch solution Until Wed 500 mL bag 07/17/21 at 1438, Routine, Intra-op Hyaluronida Yes PRN, Univer s se, Human 07-17 Starting ity of Recomb. 17:37: on Thu (HYLENEX) 00 07/17/21 at [facility] injection 1137, Branch Until Discontinu ed, Routine, Intra-op eye block Yes PRN, Univers syringe 07-17 Starting ity o f mL 17:37: on Thu 00 07/17/21 at [place] [id number], Branch Until Discontinu ed, Intra-op Hyaluronida 2021- No PRN, Unive rs se, Human 07-17 Starting ity o f Recomb. 17:37: 20:38 on Thu (HYLENEX) 00 :30 07/17/21 at [facility] injection 1137, Branch Until Thu07/17/21 at 1438, Routine, Intra-op eye block 2021- No PRN, Univers syringe 11 07-17 Starting ity of mL 17:37: 20:38 on Thu 00 :30 07/17/21 at [place] [id number], Branch Until Thu07/17/21 at 1438, Intra-op lactated 2021- No 1000mL at 42 [facility] rs ringers IV 07-17- mL/hr, ity of infusion 16:30: 16:22 1,000 mL, Chirag as 1,000 mL 00 :00 IV Medical Infusion, Branch ONCE, 1 dose, On Thu07/17/21 at 1030, Routine, DSU Pre-op lactated 2021- No 1000mL at 42 [facility] rs ringers IV 07-17 mL/hr, ity of [...] solution DSU Pre-op syringe 0.5 mL cyclopent 2021- No .5mL 0.5 mL, Univ ers 1%-tropic 07-17 Left Eye, ity of 1%-phenyl 15:45: 15:37 ONCE, [place] 2.5%-ketor 00 :00 dose, On Medic al 0.5% [facility] (MYDRIATIC 07/17/21 at #5) 0945, ophthalmic Routine, solution DSU Pre-op syringe 0.5 mL LABETALOL Yes None Univers ORAL - Entered ity of 12:38: [address] LISINOPRIL Yes 10mg Take 10 mg U nivers ORAL 2-23 by mouth ity of 12:38: daily. [address] LABETALOL Yes None Univers ORAL - Entered ity of 12:38: [address] LISINOPRIL Yes 10mg Take 10 mg U nivers ORAL -23 by mouth ity of 12:38: daily. [address] LABETALOL Yes None Univers ORAL 3-19 Entered ity of 15:46: [address] LABETALOL Yes 1 Tab Oral Un diane 100 MG ORAL 1-16 Q12H ity of TAB 00:00: [address] LABETALOL Yes 1 Tab Oral Un diane 100 MG ORAL 1-16 Q12H ity of TAB 00:00: [address] LABETALOL Yes 1 Tab Oral Un diane 100 MG ORAL 1-16 Q12H ity of TAB 00:00: [address] IBUPROFEN Yes Take one Univ ers [...] River 1 tablet Common HCl HCl Johnson [facility] Lisinopril/ Lisinopril/ Yes River 1 tablet Common Hctz Hctz Johnson once daily [facility] Multivitami Multivitami Yes River not Common n n Johnson defined [facility] Immunizations Ordered Filled Immunization Date Status Comments Sourc e Immunization Name Name Rubella 2006-06-08 Completed University 00:00:00 [facility] 2006-06-08 Completed University 00:00:00 [facility] 2006-06-08 Completed [facility] 00:00:00 [facility] Vital Signs Vital Name Observation Time Observation Value Comments Source Systolic blood 2021-07-17 18:25:00 149 mm[Hg] Univer [facility] Diastolic blood 2021-07-17 18:25:00 73 mm[Hg] Unive rsity [facility] Heart rate 2021-07-17 18:25:00 62 /min [facility] Respiratory rate 2021-07-17 18:25:00 15 /min [facility] Oxygen saturation in 2021-07-17 18:25:00 97 /min [facility] Arterial blood by [facility] Pulse oximetry Branch Body temperature 2021-07-17 18:08:00 36.11 Mei [facility] Body height 2021-07-16 18:15:00 167.6 cm [facility] Body weight 2021-07-16 18:15:00 74.844 kg [facility] BMI 2021-07-16 18:15:00 26.63 kg/m2 [facility] Systolic blood 2021-07-17 15:37:00 113 mm[Hg] Univer [facility] Diastolic blood 2021-07-17 15:37:00 76 mm[Hg] Unive rs[facility] Heart rate 2021-07-17 15:37:00 68 /min [facility] Body temperature 2021-07-17 15:37:00 37 Mei [facility] Respiratory rate 2021-07-17 15:37:00 18 /min [facility] Oxygen saturation in 2021-07-17 15:37:00 97 /min [facility] Arterial blood by [facility] Pulse oximetry Branch Body weight 2021-07-16 18:15:00 74.844 kg [facility] BMI 2021-07-16 18:15:00 26.63 kg/m2 [facility] Body height 2021-07-16 18:15:00 167.6 cm [facility] Procedures Procedure Date / Time Performing Source Performed Clinician PHACOEMULSIFICATION OF 2021-07-17 Jay Cam [facility] CATARACT WITH INTRAOCULAR 17:24:00 [facility] LENS IMPLANT Encounters Start End Encounter Admission Attending Care Care Encounter Source Date/Time Date/Time Type Type Clinicians Facility Department ID 2021-06-19 Outpatient Johnson, STLMLC STLC [id number] Common 14:23:23 River [address] [facility] 2021-06-19 Outpatient Johnson, STLMLC STLC [id number] Common 14:12:47 River 230[address] [facility] 2021-06-19 Outpatient Johnson, STLMLC STLMLC [id number] Common 13:20:15 River 425[address] [facility] 2021-06-19 Outpatient Johnson, STLMLC STLMLC [id number] Common 12:29:42 River 279[address] [facility] 2021-06-19 Outpatient Johnson, STLMLC STLMLC [id number] Common 11:24:59 River 220[address] [facility] 2021-06-19 Outpatient Johnson, STLMLC STLC [id number] Common 11:16:25 River 91778 [facility] 2021-09-05 2021-09-05 ambulatory STLMLC STLC [id number] Common 00:00:00 00:00:00 [facility] 2021-07-17 2021-07-17 Outpatient R UMESH CAM OPH [id number] Univers 09:31:00 12:33:00 JAY micntyre [facility] 2021-07-17 2021-07-17 [facility] UMESH Cam [id number] Univers 09:31:00 12:33:00 Encounter Jay Millie JOSEPHINE [id number] [facility] [id number] [id number] [facility] 071 Branch 2021-07-17 2021-07-17 Surgery [facility] [id number] Univers 10:55:00 11:36:00 Jay Millie JOSEPHINE [id number] ity of [id number] SURGICAL [id number] [facility] 020 Branch 2021-07-15 2021-07-15 Outpatient R [facility] [id number] Univers 16:00:00 16:00:00 [id number] [facility] 2021-07-15 2021-07-[address] 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 Jennifer, Adc Lab Main [facility] [id number] Univers 16:15:00 16:30:00 Visit Jay Cam Millie JOSEPHINE [id number] ity of [id number] PROFESS[place] [id number] [address] 2021-07-12 2021-07-12 [facility] [id number] Univers 16:15:00 16:15:00 JAY [facility] 2021-05-03 2021-05-03 ambulatory STLMLC STLMLC [id number] Common 00:00:00 00:00:00 [facility] 2021-05-03 2021-05-03 ambulatory STLMLC STLMLC [id number] Common 00:00:00 00:00:00 [facility] 2021-04-04 2021-04-04 ambulatory STLMLC STLMLC [id number] Common 00:00:00 00:00:00 [facility] 2021-01-10 2021-01-10 Outpatient STLMLC STLMLC [id number] Common 00:00:00 00:00:00 [facility] 2020-07-06 2020-07-06 Outpatient STLMLC STLMLC [id number] Common 00:00:00 00:00:00 [facility] 2020-06-14 2020-06-14 Outpatient STLMLC STLMLC [id number] Common 00:00:00 00:00:00 [facility] 2019-10-27 2019-10-27 [id number] Common 11:51:00 11:51:00 t [facility] [address] [facility] 2019-10-25 2019-10-25 [facility] [id number] Common 09:30:00 09:30:00 [place] [address] [facility] 2019-10-24 2019-10-24 [facility] [id number] Common 15:45:00 15:45:00 [place] [address] [facility] 2019-10-24 2019-10-24 [facility] [id number] Common 14:40:00 14:40:00 [place] [address] [facility] 2019-08-23 2019-08-23 [facility] [id number] Common 13:30:00 13:30:00 [place] [address] [facility] Results This patient has no known results.
[2022-01-02 12:02] LABS: Specific Gravity 1.025 (1.005-1.030); Urine Bilirubin Negative (Negative); Urine Blood 1+ (Negative); Urine Clarity Clear (Clear); Urine Color Yellow (Yellow); Urine Glucose Negative (Negative); Urine Protein 3+ (Negative); Urine Urobilinogen 0.2 mg/dL (0.2-1.0)
[2022-01-02 12:11] LABS: Urine Bacteria 20-50 /HPF (<20); Urine RBC <5 /HPF (None Seen)
[2022-01-02 12:24] LABS: Absolute Lymphocytes (CBC) 2.7 K/uL (0.7-4.9); Hematocrit 38.5 % (36.0-45.0); Lymphocytes % 27.6 % (15.3-44.8); MCV 87.4 fL (80-100); MPV 8.1 fL (7.6-11.3); RBC Red Blood Cell Count 4.41 M/uL (3.86-4.86)
[2022-01-02] MEDS ORDERED: ONDANSETRON 4 MG/2 ML VIAL ONE (12:24)
[2022-01-02] MEDS ORDERED: MAGNES/ALUMIN/SIMET 30ML UCUP ONE (12:24)
[2022-01-02] MEDS ORDERED: FAMOTIDINE 20 MG/2 ML VIAL IV ONE (12:24)
[2022-01-02] MEDS ORDERED: LIDOCAINE VISCOUS 2% SOLN 15 ML UDC ONE (12:31)
[2022-01-02 12:37] LABS: Albumin 3.7 g/dL (3.4-5.0); Bilirubin Total 0.4 mg/dL (0.2-1.0); Protein, Total 7.7 g/dL (6.4-8.2)
--- NOTE | 2022-01-02 13:20 | RAD REPORT ---
EXAM DESCRIPTION: CTAbdomen Pelvis W Contrast - 01/02/2022 1:00 pm CLINICAL HISTORY: Abdominal pain. Abdominal pain, acute, nonlocalized COMPARISON: Abdomen Pelvis W Contrast dated 11/20/2020 TECHNIQUE: Biphasic CT imaging of the abdomen and pelvis was performed with 100 ml non-ionic IV cont rast. All CT scans are performed using dose optimization technique as appropriate and may include automated exposure control or mA/KV adjustment according to patient size. FINDINGS: The lung bases are clear.Cholecystectomy clips. The liver, spleen, pancreas, adrenal glands and kidneys are within normal limits. No bowel obstruction, free air, free fluid or abscess. Sigmoid diverticulosis coli is present with mo derate stool retention throughout the colon seen. The appendix is normal. No evidence of significant lymphadenopathy. No suspicious bony findings. IMPRESSION: Sigmoid diverticulosis coli without diverticulitis. Moderate stool retention throughout the colon.
[2022-01-02] MEDS ORDERED: lisinopriL 10 MG TAB ONE (13:44)
[2022-01-02] MEDS ORDERED: MORPHINE 2 MG/ML SYR ONE (13:44)
--- NOTE | 2022-01-02 13:54 | ER ---
Nurse's Notes [facility] [place] Name: Jocelyn White Age: 56 yrs Sex: Female : 1965 Arrival Date: 01/02/2022 Time: 11:32 Bed 16 Private MD: River Johnson Diagnosis: Upper abdominal pain, unspecified Presentation: 01/02 11:45 Chief complaint: Patient states: I have been having a severe burning in my stomach bm7 since last night. Coronavirus screen: At this time, the client does not indicate any symptoms associated with coronavirus-19. Ebola Screen: No symptoms or risks identified at this time. Initial Sepsis Screen: Does the patient meet any 2 criteria? No. Patient's initial sepsis screen is negative. Does the patient have a suspected source of infection? No. Patient's initial sepsis screen is negative. Risk Assessment: Do you want to hurt yourself or someone else? Patient reports no desire to harm self or others. Onset of symptoms was January 01, 2022. 11:45 Method Of Arrival: Ambulatory 7 11:45 Acuity: RADHA 3 bm7 Triage Assessment: 11:46 General: Appears in no apparent distress. uncomfortable, well groomed, well developed, bm7 Behavior is cooperative, appropriate for age, restless. Pain: Complains of pain in epigastric area. EENT: No deficits noted. No signs and/or symptoms were reported regarding the EENT system. Neuro: No deficits noted. Cardiovascular: No deficits noted. Respiratory: No deficits noted. GI: Abdomen is round non-distended, Bowel sounds present X 4 quads. Abd is soft X 4 quads Abd is non tender X 4 quads Reports nausea, vomiting. : No deficits noted. No signs and/or symptoms were reported regarding the genitourinary system. Derm: No deficits noted. No signs and/or symptoms reported regarding the dermatologic system. Musculoskeletal: No deficits noted. No signs and/or symptoms reported regarding the musculoskeletal system. Historical: - Allergies: 14:10 No Known Allergies; jl7 - Home Meds: 11:46 labetalol Oral [Active]; lisinopril Oral [Active]; bm7 - PMHx: 11:46 Hypertensive disorder; bm7 - Immunization history:: Adult Immunizations up to date. - Social history:: Smoking status: Patient/guardian denies using tobacco products, . - : The history from the nurse's notes was reviewed and I agree with what is documented. Screenin:50 Abuse screen: Denies threats or abuse. Nutritional screening: No deficits noted. em6 Tuberculosis screening: No symptoms or risk factors identified. Fall Risk IV access (20 points). Total Lackey Fall Scale indicates No Risk (0-24 pts). Assessment: 11:56 General: Appears in no apparent distress. uncomfortable, Behavior is calm, cooperative, em6 crying. Pain: Complains of pain in epigastric area Pain does not radiate. Pain currently is 8 out of 10 on a pain scale. Quality of pain is described as burning, Pain began 1 day ago. Is continuous, Aggravated by eating. Neuro: Diallo Agitation-Sedation Scale (RASS): 0 - Alert and Calm Level of Consciousness is awake, alert, obeys commands, Oriented to person, place, time, situation. Cardiovascular: Heart tones present Capillary refill < 3 seconds Patient's skin is warm and dry. Chest pain is denied. Respiratory: Airway is patent Respiratory effort is even, unlabored, Respiratory pattern is regular, symmetrical, Breath sounds are clear bilaterally. GI: Abdomen is non-distended, Bowel sounds present X 4 quads. Abd is non tender Patient currently denies bloody stool. : No signs and/or symptoms were reported regarding the genitourinary system. EENT: No signs and/or symptoms were reported regarding the EENT system. Derm: No signs and/or symptoms reported regarding the dermatologic system. Musculoskeletal: Circulation, motion, and sensation intact. 12:50 Reassessment: No changes from previously documented assessment. Patient and/or family em6 updated on plan of care and expected duration. Pain level reassessed. 13:42 Reassessment:. Reassessment: Notified Dr. stroud of patients current pain of 10. received em6 verbal order of morphine 2mg IV. Administered medication. . Pain: Complains of pain in epigastric area Pain currently is 10 out of 10 on a pain scale. Also complains of nausea. 13:42 Reassessment: patients blood pressure is 197/102. notified Dr stroud and gave a verbal em6 order of lisinopril 10mg PO. Administered medication per providers order. . Vital Signs: 11:45 BP 181 / 90; Pulse 71; Resp 16; Temp 99.3(TE); Pulse Ox 99% on R/A; Weight 74.84 kg bm7 (M); Height 5 ft. 6 in. (167.64 cm); Pain 9/10; 13:45 BP 197 / 102; Pulse 98; Resp 22; Pulse Ox 98% on R/A; Pain 10/10; em6 14:10 BP 184 / 94; Pulse 65; Resp 15; Pulse Ox 98% ; jl7 14:16 BP 181 / 94; Pulse 69; Resp 18; Pulse Ox 96% on R/A; em6 14:18 BP 186 / 100; Pulse 69; Resp 18; Pulse Ox 96% on R/A; em6 11:45 Body Mass Index 26.63 (74.84 kg, 167.64 cm) bm7 ED Course: 11:32 Patient arrived in ED. mr 11:32 Rievr Johnson DO is Private Physician. mr 11:35 Manoj Stroud DO is Attending Physician. ms3 11:46 Triage completed. bm7 11:46 Arm band placed on left wrist. bm7 11:50 Patient has correct armband on for positive identification. Placed in gown. Bed in low em6 position. Call light in reach. Side rails up X 1. Adult w/ patient. Pulse ox on. NIBP on. Warm blanket given. 12:07 Initial lab(s) drawn, by me, sent to lab. Inserted saline lock: 20 gauge in left iw antecubital area, using aseptic technique. Blood collected. 13:02 CT Abd/Pelvis - IV Contrast Only In Process Unspecified. EDMS 13:53 Carlos Hernandez MD is Referral Physician. ms3 14:10 Westley Jacobs RN is Primary Nurse. jl7 14:19 No provider procedures requiring assistance completed. IV discontinued, intact, em6 bleeding controlled, No redness/swelling at site. Pressure dressing applied. Administered Medications: 12:20 Drug: Pepcid (famotidine) 20 mg Route: IVP; Site: left antecubital; em6 13:00 Follow up: Response: No adverse reaction em6 12:20 Drug: Zofran (Ondansetron) 4 mg Route: IVP; Site: left antecubital; em6 13:00 Follow up: Response: No adverse reaction em6 12:20 Drug: GI Cocktail with - (Phenobarbital-Belladonna 10 ml, Maalox Suspension 30 em6 ml, Lidocaine Liquid 2 % 20 ml) Route: PO; 13:00 Follow up: Response: No adverse reaction em6 13:41 Drug: morphine 2 mg Route: IVP; Infused Over: 4 mins; Site: left antecubital; em6 14:18 Follow up: BP 186 / 100; Pulse 69 bpm; Resp 18 bpm; Pulse Ox 96% RA; Response: No em6 adverse reaction; RASS: Alert and Calm (0) 13:41 Drug: Lisinopril 10 mg Route: PO; em6 14:16 Follow up: BP 181 / 94; Pulse 69 bpm; Resp 18 bpm; Pulse Ox 96% RA; Response: No em6 adverse reaction Medication: 11:50 VIS not applicable for this client. em6 Outcome: 13:54 Discharge ordered by MD. ms3 14:19 Discharged to home via wheelchair, with family. em6 14:19 Condition: stable 14:19 Discharge instructions given to patient, family, Instructed on discharge instructions, follow up and referral plans. no driving heavy equipment, medication usage, Demonstrated understanding of instructions, follow-up care, medications, Prescriptions given X 1. 14:19 Patient left the ED. em6 Signatures: Dispatcher [employer] [facility] Fran Madhavi fisher Meg Begum, RN Westley Hood RN RN Manoj Nash DO DO ms3 Sharlene Norris RN RN bm7 Martinez, Erika RN RN em6 Corrections: (The following items were deleted from the chart) 11:47 11:46 PSHx: Cholecystectomy; bm7 bm7 11:49 11:45 The history from the nurse's notes was reviewed and I agree with what is ms3 documented. ms3 13:48 12:30 Response: No adverse reaction em6 em6 14:18 14:17 BP 186 / 100; Pulse 69 bpm; Resp 18 bpm; Pulse Ox 96% RA em6 em6 14:33 13:45 BP 197 / 102; Pulse 98bpm; Resp 22bpm; Pulse Ox 98% Nasal Cannula; Pain 10/10; em6em6
--- NOTE | 2022-01-02 13:54 | EDPHYS ---
Physician Documentation [facility] Name: Jocelyn White Age: 56 yrs Sex: Female : 1965 Arrival Date: 01/02/2022 Time: 11:32 Bed 16 Private MD: Alex [facility] ED Physician Manoj Johns HPI: 01/02 11:45 This 56 yrs old Female presents to ER via Unassigned with complaints of ms3 Abdominal Pain. 11:45 The patient presents with abdominal pain in the upper abdomen. Onset: The ms3 symptoms/episode began/occurred yesterday. The symptoms do not radiate. Associated signs and symptoms: Pertinent positives: nausea and vomiting, Pertinent negatives: diarrhea. The symptoms are described as burning. Modifying factors: The symptoms are alleviated by nothing, the symptoms are aggravated by nothing. Severity of pain: At its worst the pain was severe in the emergency department the pain is unchanged is a 9 / 10. 56-year-old female with past medical history of hypertension presents for upper abdominal pain that began yesterday. Patient states her pain is a 9/10 described as burning. Patient denies radiation. Patient denies alleviating or inciting factors. Patient endorses subjective fever, chills, nausea, vomiting. Patient denies diarrhea. Patient states she presented to emergency department last night and left due to the wait.. Historical: - Allergies: 14:10 No Known Allergies; jl7 - Home Meds: 11:46 labetalol Oral [Active]; lisinopril Oral [Active]; bm7 - PMHx: 11:46 Hypertensive disorder; bm7 - Immunization history:: Adult Immunizations up to date. - Social history:: Smoking status: Patient/guardian denies using tobacco products, . - : The history from the nurse's notes was reviewed and I agree with what is documented. ROS: 11:49 Neck: Negative for injury, pain, and swelling, Cardiovascular: Negative for chest pain, ms3 and palpitations. Respiratory: Negative for shortness of breath, cough, wheezing, and pleuritic chest pain, MS/Extremity: Negative for injury and deformity, Skin: Negative for injury, rash, and discoloration, Neuro: Negative for headache, weakness, numbness, tingling. Psych: Negative for depression, anxiety, suicide ideation, homicidal ideation, and hallucinations. 11:49 Constitutional: Positive for chills, fever. 11:49 All other systems are negative. Exam: 11:49 Constitutional: This is a well developed, well nourished patient who is awake, alert, ms3 and in no acute distress. Head/Face: Normocephalic, atraumatic. Eyes: Pupils equal round and reactive to light, extra-ocular motions intact. Lids and lashes normal. Conjunctiva and sclera are non-icteric and not injected. Periorbital areas with no swelling, redness, or edema. Neck: Trachea midline, no cervical lymphadenopathy. Supple, full range of motion without nuchal rigidity, or vertebral point tenderness. No Meningismus. Chest/axilla: Normal chest wall appearance and motion. Nontender with no deformity. Cardiovascular: Regular rate and rhythm with a normal S1 and S2. No gallops, murmurs, or rubs. Normal PMI, no JVD. No pulse deficits. Respiratory: Lungs have equal breath sounds bilaterally, clear to auscultation and percussion. No rales, rhonchi or wheezes noted. No increased work of breathing, no retractions or nasal flaring. 11:49 Skin: Warm, dry with normal turgor. Normal color with no rashes, no lesions, and no evidence of cellulitis. Psych: Awake, alert, with orientation to person, place and time. Behavior, mood, and affect are within normal limits. 11:49 Abdomen/GI: Inspection: abdomen appears normal, Bowel sounds: normal, Palpation: moderate abdominal tenderness, in the right upper quadrant and left upper quadrant. Vital Signs: 11:45 BP 181 / 90; Pulse 71; Resp 16; Temp 99.3(TE); Pulse Ox 99% on R/A; Weight 74.84 kg bm7 (M); Height 5 ft. 6 in. (167.64 cm); Pain 9/10; 13:45 BP 197 / 102; Pulse 98; Resp 22; Pulse Ox 98% on R/A; Pain 10/10; em6 14:10 BP 184 / 94; Pulse 65; Resp 15; Pulse Ox 98% ; jl7 14:16 BP 181 / 94; Pulse 69; Resp 18; Pulse Ox 96% on R/A; em6 14:18 BP 186 / 100; Pulse 69; Resp 18; Pulse Ox 96% on R/A; em6 11:45 Body Mass Index 26.63 (74.84 kg, 167.64 cm) bm7 MDM: 11:44 Patient medically screened. ms3 11:49 Differential diagnosis: gastritis, gastroesophageal reflux disease, non-specific abd ms3 pain, pancreatitis, Peptic Ulcer Disease, Perf. Duodenal Ulcer, Perf. Gastric Ulcer. 13:56 Data reviewed: vital signs, nurses notes, lab test result(s), radiologic studies, and ms3 as a result, I will discharge patient. Counseling: I had a detailed discussion with the patient and/or guardian regarding: the historical points, exam findings, and any diagnostic results supporting the discharge/admit diagnosis, lab results, radiology results, the need for outpatient follow up, to return to the emergency department if symptoms worsen or persist or if there are any questions or concerns that arise at home. ED course: Discussed labs, CT, physical exam findings with patient. Patient to follow-up with Dr. Hernandez in 2 to 3 days. Patient understands and agrees with plan. All questions were answered. Return precautions discussed include worsening symptoms, or any other concerns. On reevaluation patient symptoms improved, patient is alert and oriented x4, no apparent distress, nontoxic, ambulatory in emergency department, tolerating p.o.. 01/02 11:44 Order name: CBC with Diff; Complete Time: 13:05 ms3 01/02 11:44 Order name: CMP; Complete Time: 13:05 ms3 01/02 11:44 Order name: Lipase; Complete Time: 13:05 ms3 01/02 12:02 Order name: Urinalysis; Complete Time: 13:05 EDMS 01/02 11:44 Order name: CT Abd/Pelvis - IV Contrast Only; Complete Time: 13:29 ms3 01/02 11:44 Order name: IV Saline Lock; Complete Time: 12:09 ms3 01/02 12:15 Order name: Urine Culture EDVT 01/02 11:44 Order name: Labs collected and sent; Complete Time: 12:10 ms3 01/02 11:44 Order name: Urine Dipstick-Ancillary (obtain specimen); Complete Time: 12:10 ms3 Administered Medications: 12:20 Drug: Pepcid (famotidine) 20 mg Route: IVP; Site: left antecubital; em6 13:00 Follow up: Response: No adverse reaction em6 12:20 Drug: Zofran (Ondansetron) 4 mg Route: IVP; Site: left antecubital; em6 13:00 Follow up: Response: No adverse reaction em6 12:20 Drug: GI Cocktail with - (Phenobarbital-Belladonna 10 ml, Maalox Suspension 30 em6 ml, Lidocaine Liquid 2 % 20 ml) Route: PO; 13:00 Follow up: Response: No adverse reaction em6 13:41 Drug: morphine 2 mg Route: IVP; Infused Over: 4 mins; Site: left antecubital; em6 14:18 Follow up: BP 186 / 100; Pulse 69 bpm; Resp 18 bpm; Pulse Ox 96% RA; Response: No em6 adverse reaction; RASS: Alert and Calm (0) 13:41 Drug: Lisinopril 10 mg Route: PO; em6 14:16 Follow up: BP 181 / 94; Pulse 69 bpm; Resp 18 bpm; Pulse Ox 96% RA; Response: No em6 adverse reaction Disposition Summary: 01/02/22 13:54 Discharge Ordered Location: Home ms3 Condition: Stable ms3 Diagnosis - Upper abdominal pain, unspecified ms3 Followup: ms3 - With: Carlos Hernandez MD - When: 2 - 3 days - Reason: Re-evaluation by your physician Discharge Instructions: - Discharge Summary Sheet ms3 - Abdominal Pain, Adult ms3 Forms: - Medication Reconciliation Form ms3 - Thank You Letter ms3 - Antibiotic Education ms3 - Prescription Opioid Use ms3 Prescriptions: - Carafate 1 gram Oral Tablet - take 1 tablet by ORAL route 4 times per day take on an empty stomach, beginning ms3 on waking and last dose at bedtime; 40 tablet; Refills: 0, Product Selection Permitted Signatures: Dispatcher [employer] EDMS Westley Jacobs RN RN [email or web address] Manoj Johns DO DO ms3 Sharlene Norris RN RN bm7 Ana Paulson RN RN em6 Corrections: (The following items were deleted from the chart) 11:47 11:46 PSHx: Cholecystectomy; bm7 bm7 11:49 11:45 The history from the nurse's notes was reviewed and I agree with what is ms3 documented. ms3 12:13 11:45 UA MICROSCOPIC+U.LAB.BRZ ordered. EDMS EDMS : 12:02 URINALYSIS+U.LAB.BRZ ordered. EDMS EDMS
[2022-01-02 14:32] VITALS: TEMP 99.3
[2022-01-02 15:00] VITALS: O2SAT 96
[2022-01-02 15:03] VITALS: BP 186/100
== END 2022-01-02 14:19 | disposition home or self-care (01) ==
LOC: ER 11:30
DX: R10.10 Upper abdominal pain, unspecified (principal); R11.2 Nausea with vomiting, unspecified
CPT/HCPCS: 36415; 74177; 80053; 81001; 83690; 85025; 87086; 87088; 96374; 96375; 99284; J2270; J2405; Q9967

== ENCOUNTER 2024-10-03 08:38 | Emergency (ER) | payer OTHER, SELFPAY ==
--- OUTSIDE RECORDS SUMMARY | 2024-10-03 08:42 | XMS REPORT | Continuity of Care Document ---
Author Name Unknown Address [address] [facility] [address] [place] [address] Organization [facility] [place] Address [address] [facility] [place] [address] Care Team Providers Care Teacher Lip Reading Name Role Phone River Johnson Primary Care Physician [phone] River Johnson Attending Clinician Unavailable SYDNEY CAM Attending Clinician Sydney Bryant MD Attending Clinician [phone] Pob, [facility] Main Attending Clinician SYDNEY Swanson Admitting Clinician Sydney Bryant MD Admitting Clinician [phone] Problems Condition Name Condition Details Condition Category Status Onset Date Resolution Date Last Treatment Date Treating Clinician Comments Source Benign essential hypertensi on antepartum Benign essential hypertensi on antepartum Disease Active 2005-05 00:00: 00 [facility] [id number] Stage 3a chronic kidney disease Problem Common [facility] [id number] Hypercalce uzma Problem [facility] [id number] History of peptic ulcer Problem [facility] [id number] Subclinica l hyperthyro idism Problem [facility] [id number] Dyslipidem ia Problem [facility] [id number] Seasonal allergies Problem [facility] [id number] Essential hypertensi on Problem [facility] [id number] Left breast mass Problem [facility] Allergies, Adverse Reactions, Alerts Allergy Name Allergy Type Status Severity Reaction(s) Onset Date Inactive Date Treating Clinician Comments Source NO KNOWN ALLERGIE S Drug Class Active [facility] Social History Social Habit Start Date Stop Date Quantity Comments Source History of Tobacco Use [facility] Sex Assigned At [facility] Exposure to SARS-CoV-2 (event) Not sure [facility] Smoking Status Start Date Stop Date Source Unknown if ever smoked [facility] Former Smoker 2024-06-22 00:00:00 2024-06-22 00:00:00 [facility] Medications Ordered Medication Name Filled Medication Name Start Date Stop Date Current Medication? Ordering Clinician Indication Dosage Frequency Signature (SIG) Comments Components Source Pseudoeph-B romphen-DM 30-2-10 MG/5ML Pseudoeph-B romphen-DM 30-2-10 MG/5ML 06-22 00:00: 00 No Pseudoeph- Bromphen-D M 30-2-10 MG/5ML Ofloxacin 0.3 % Ofloxacin 0.3 % 9 00:00: 00 No 10{drop s_into_ affecte d_ear} QD Ofloxacin 0.3 % neomycin-po lymyxin-dex amethasone (MAXITROL) 3.5 mg/g-10,000 unit/g-0.1 % ophthalmic ointment 07-17 17:53: 00 Yes PRN, Starting on Thu07/17/21 at 1153, Until Discontinu ed, Routine, Intra-op [facility] DUOVISC (DUOVISC VISCO ELASTIC) 3 %-4 %(0.5 mL) 1 % (0.55 mL) intraocular injection 07-17 17:53: 00 Yes PRN, Starting on Thu07/17/21 at 1153, Until Discontinu ed, Routine, Intra-op [facility] dexamethaso ne (DECADRON PHOSPHATE) injection 07-17 17:53: 00 Yes PRN, Starting on Thu07/17/21 at 1153, Until Discontinu ed, Routine, [facility]op [facility] ceFAZolin (ANCEF) injection 07-17 17:52: 00 Yes PRN, Starting on Thu07/17/21 at 1152, Until Discontinu ed, ALBA, Intra-op [facility] carbachoL (MIOSTAT) 0.01 % intraocular injection 07-17 17:52: 00 Yes PRN, Starting on Thu07/17/21 at 1152, Until Discontinu ed, Routine, Intra-op [facility] EPINEPHrine 1:1,000 (1 mg/mL) (ADRENALIN) injection 07-17 17:51: 00 Yes PRN, Starting on Thu07/17/21 at 1151, Until Discontinu ed, Routine, Intra-op [facility] sodium chloride (NS) injection 07-17 17:50: 00 Yes PRN, Starting on Thu07/17/21 at 1150, Until Discontinu ed, Routine, Intra-op [facility] trypan blue (VISION BLUE) 0.06 % syringe 07-17 17:47: 00 Yes PRN, Starting on Thu07/17/21 at 1147, Until Discontinu ed, Routine, Intra-op [facility] water for irrigation irrigation solution 07-17 17:43: 00 Yes PRN, Starting on Thu07/17/21 at 1143, Until Discontinu ed, Routine, Intra-op [facility] balanced salt irrig soln comb1 (BSS PLUS) ophthalmic solution 500 mL bag 07-17 17:40: 00 Yes PRN, Starting on Thu07/17/21 at 1140, Until Discontinu ed, Routine, Intra-op [facility] Hyaluronida se, Human Recomb. (HYLENEX) injection 07-17 17:37: 00 Yes PRN, Starting on Thu07/17/21 at 1137, Until Discontinu ed, Routine, Intra-op [facility] eye block syringe 11 mL 07-17 17:37: 00 Yes PRN, Starting on Thu07/17/21 at 1137, Until Discontinu ed, Intra-op [facility] lactated ringers IV infusion 1,000 mL 07-17 16:30: 00 07-17 16:22 :00 No 1000mL at 42 mL/hr, 1,000 mL, IV Infusion, ONCE, 1 dose, On Thu07/17/21 at 1030, Routine, DSU Pre-op [facility] cyclopent 1%-tropic 1%-phenyl 2.5%-ketor 0.5% (MYDRIATIC #5) ophthalmic solution syringe 0.5 mL 07-17 15:45: 00 07-17 15:37 :00 No .5mL 0.5 mL, Left Eye, ONCE, 1 dose, On Thu07/17/21 at 0945, Routine, DSU Pre-op [facility] LABETALOL ORAL 07-17 12:38: 27 Yes None Entered [facility] LABETALOL ORAL 08-10 15:46: 33 Yes None Entered [facility] LABETALOL 100 MG ORAL TAB 06-09 00:00: 00 Yes 1 Tab Oral Q12H [facility] IBUPROFEN 600 MG ORAL TAB 06-06 13:13: 15 Yes Take one tablet by mouth every six hours as needed for pain [facility] HYDROCODONE -ACETAMINOP HEN 5-325 MG ORAL TAB 06-06 13:13: 14 Yes Take one to two tablets by mouth every six hours as needed for pain [facility] VIT-IRON FUMARATE-FA 60-1 MG ORAL TAB 06-06 00:00: 00 Yes Take one tablet by mouth daily [facility] DOCUSATE CALCIUM 240 MG ORAL CAP 06-06 00:00: 00 Yes Take one capsule by mouth daily as needed for constipati on [facility] FERROUS SULFATE 300 (60) MG ORAL TAB 06-06 00:00: 00 Yes Take one tablet by mouth twice daily [facility] Lisinopril- hydroCHLORO thiazide 10-12.5 MG Lisinopril- hydroCHLORO thiazide 10-12.5 MG No 1{table t} QD Lisinopril -hydroCHLO ROthiazide 10-12.5 MG Labetalol HCl 200 MG Labetalol HCl 200 MG No 1{table t} BID Labetalol HCl 200 MG Multivitami n Multivitami n No Multivitam in Lomaira 8 MG Lomaira 8 MG No TID Lomaira 8 MG Azithromyci n 250 MG Azithromyci n 250 MG No QD Azithromyc in 250 MG methylPREDN ISolone 4 MG methylPREDN ISolone 4 MG No QD methylPRED NISolone 4 MG Vital Signs Vital Name Observation Time Observation Value Comments S ource height 2024-06-22 11:15:00 66 [in_i] Commo n [facility] weight 2024-06-22 11:15:00 162 [lb_av] Comm on [facility] temperature 2024-06-22 11:15:00 100.3 [degF] Co mmon [facility] bmi 2024-06-22 11:15:00 26.14 kg/m2 Comm on [facility] blood pressure systolic 2024-06-22 11:15:00 110 mm[Hg] Common [facility] blood pressure diastolic 2024-06-22 11:15:00 60 mm[Hg] Common [facility] height 2024-05-12 08:00:00 66 [in_i] Commo n [facility] weight 2024-05-12 08:00:00 165 [lb_av] Comm on [facility] temperature 2024-05-12 08:00:00 96.8 [degF] Com mon [facility] bmi 2024-05-12 08:00:00 26.63 kg/m2 Comm on [facility] oximetry 2024-05-12 08:00:00 98 % Commo n [facility] respiratory rate 2024-05-12 08:00:00 17 /min Common [facility] blood pressure systolic 2024-05-12 08:00:00 130 mm[Hg] [facility] blood pressure diastolic 2024-05-12 08:00:00 76 mm[Hg] [facility] height 2024-02-03 15:40:00 66 [in_i] Commo n [facility] weight 2024-02-03 15:40:00 168 [lb_av] Comm on [facility] temperature 2024-02-03 15:40:00 98.1 [degF] Com mon [facility] bmi 2024-02-03 15:40:00 27.11 kg/m2 Comm on [facility] oximetry 2024-02-03 15:40:00 98 % Commo n [facility] respiratory rate 2024-02-03 15:40:00 17 /min [facility] blood pressure systolic 2024-02-03 15:40:00 135 mm[Hg] [facility] blood pressure diastolic 2024-02-03 15:40:00 74 mm[Hg] Common [facility] height 2023-12-23 15:00:00 66 [in_i] Commo n [facility] weight 2023-12-23 15:00:00 160 [lb_av] Comm on [facility] bmi 2023-12-23 15:00:00 25.82 kg/m2 Comm on [facility] blood pressure systolic 2023-12-23 15:00:00 120 mm[Hg] Common [facility] blood pressure diastolic 2023-12-23 15:00:00 80 mm[Hg] Common [facility] height 2023-11-11 10:10:00 66 [in_i] Commo n [facility] weight 2023-11-11 10:10:00 160 [lb_av] Comm on [facility] bmi 2023-11-11 10:10:00 25.82 kg/m2 Comm on [facility] blood pressure systolic 2023-11-11 10:10:00 122 mm[Hg] Common [facility] blood pressure diastolic 2023-11-11 10:10:00 79 mm[Hg] Common [facility] height 2023-04-27 16:30:00 66 [in_i] Commo n [facility] weight 2023-04-27 16:30:00 165 [lb_av] Comm on [facility] bmi 2023-04-27 16:30:00 26.63 kg/m2 Comm on [facility] blood pressure systolic 2023-04-27 16:30:00 125 mm[Hg] Common [facility] blood pressure diastolic 2023-04-27 16:30:00 70 mm[Hg] Common [facility] height 2023-01-07 16:20:00 66 [in_i] Commo n [facility] weight 2023-01-07 16:20:00 166 [lb_av] Comm on [facility] temperature 2023-01-07 16:20:00 98.3 [degF] Com mon [facility] bmi 2023-01-07 16:20:00 26.79 kg/m2 Comm on [facility] oximetry 2023-01-07 16:20:00 96 % Commo n [facility] respiratory rate 2023-01-07 16:20:00 16 /min Common [facility] blood pressure systolic 2023-01-07 16:20:00 136 mm[Hg] Common [facility] blood pressure diastolic 2023-01-07 16:20:00 76 mm[Hg] Common [facility] height 2022-10-22 16:10:00 66 [in_i] Commo n [facility] weight 2022-10-22 16:10:00 168.8 [lb_av] Co mmon [facility] temperature 2022-10-22 16:10:00 97.2 [degF] Com mon [facility] bmi 2022-10-22 16:10:00 27.24 kg/m2 Comm on [facility] oximetry 2022-10-22 16:10:00 98 % Commo n [facility] respiratory rate 2022-10-22 16:10:00 18 /min Common [facility] blood pressure systolic 2022-10-22 16:10:00 139 mm[Hg] Common [facility] blood pressure diastolic 2022-10-22 16:10:00 75 mm[Hg] [facility] height 2022-09-08 16:10:00 66 [in_i] Commo n [facility] weight 2022-09-08 16:10:00 172.5 [lb_av] Co on [facility] temperature 2022-09-08 16:10:00 97.9 [degF] Com mon [facility] bmi 2022-09-08 16:10:00 27.84 kg/m2 Comm on [facility] oximetry 2022-09-08 16:10:00 95 % Commo n [facility] respiratory rate 2022-09-08 16:10:00 16 /min Common [facility] blood pressure systolic 2022-09-08 16:10:00 131 mm[Hg] Common [facility] blood pressure diastolic 2022-09-08 16:10:00 77 mm[Hg] Common [facility] height 2022-06-30 13:00:00 66 [in_i] Commo n [facility] weight 2022-06-30 13:00:00 160 [lb_av] Comm on [facility] bmi 2022-06-30 13:00:00 25.82 kg/m2 Comm on [facility] height 2022-03-10 09:30:00 66 [in_i] Commo n [facility] weight 2022-03-10 09:30:00 164.7 [lb_av] Co mmon [facility] temperature 2022-03-10 09:30:00 97.3 [degF] Com mon [facility] bmi 2022-03-10 09:30:00 26.58 kg/m2 Comm on [facility] oximetry 2022-03-10 09:30:00 98 % Commo n [facility] respiratory rate 2022-03-10 09:30:00 18 /min Common [facility] blood pressure systolic 2022-03-10 09:30:00 132 mm[Hg] [facility] blood pressure diastolic 2022-03-10 09:30:00 70 mm[Hg] [facility] Systolic blood pressure 2021-07-17 18:25:00 149 mm[Hg] [facility] Diastolic blood pressure 2021-07-17 18:25:00 73 mm[Hg] [facility] Heart rate 2021-07-17 18:25:00 62 /min [facility] Respiratory rate 2021-07-17 18:25:00 15 /min [facility] Oxygen saturation in Arterial blood by Pulse oximetry 2021-07-17 18:25:00 97 /min [facility] Body temperature 2021-07-17 18:08:00 36.11 Mei [facility] Body height 2021-07-16 18:15:00 167.6 cm [facility] Body weight 2021-07-16 18:15:00 74.844 kg [facility] BMI 2021-07-16 18:15:00 26.63 kg/m2 [facility] Systolic blood pressure 2021-07-17 15:37:00 113 mm[Hg] [facility] Diastolic blood pressure 2021-07-17 15:37:00 76 mm[Hg] [facility] Heart rate 2021-07-17 15:37:00 68 /min [facility] Body temperature 2021-07-17 15:37:00 37 Mei [facility] Respiratory rate 2021-07-17 15:37:00 18 /min [facility] Oxygen saturation in Arterial blood by Pulse oximetry 2021-07-17 15:37:00 97 /min [place] [facility] Body weight 2021-07-16 18:15:00 74.844 kg [facility] BMI 2021-07-16 18:15:00 26.63 kg/m2 [facility] Body height 2021-07-16 18:15:00 167.6 cm [facility] height 2021-05-03 11:00:00 66 [in_i] Commo n [facility] weight 2021-05-03 11:00:00 160 [lb_av] Comm on [facility] bmi 2021-05-03 11:00:00 25.82 kg/m2 Comm on [facility] height 2021-04-04 10:40:00 66 [in_i] Commo n [facility] weight 2021-04-04 10:40:00 160 [lb_av] Comm on [facility] temperature 2021-04-04 10:40:00 98.3 [degF] Com mon [facility] bmi 2021-04-04 10:40:00 25.82 kg/m2 Comm on [facility] blood pressure systolic 2021-04-04 10:40:00 120 mm[Hg] Common [facility] blood pressure diastolic 2021-04-04 10:40:00 86 mm[Hg] Common [facility] Procedures Procedure Date / Time Performed Performing Clinician Source PHACOEMULSIFICATION OF CATARACT WITH INTRAOCULAR LENS IMPLANT 2021-07-17 17:24:00 Sydney Cam [facility] Encounters Start Date/Time End Date/Time Encounter Type Admission Type Attending Clinicians Care Facility Care Department Encounter ID Source 2024-06-22 09:21:00 Outpatient Johnson, River [facility] ST[facility] [id number] [facility] 2023-12-23 13:28:00 Outpatient Johnson, [facility] ST[facility] [id number] [facility] 2023-04-27 16:21:00 Outpatient Johnson, River [facility] STLMLC [id number] [facility] 2023-01-07 09:30:00 Outpatient Johnson, [facility] STLMLC [id number] [facility] 2023-01-06 16:42:00 Outpatient Johnson, [facility] ST[facility] [id number] [facility] 2022-07-01 14:32:00 Outpatient Johnson, [facility] ST[facility] [id number] [facility] 2022-06-30 16:04:00 Outpatient Johnson, [facility] ST[facility] [id number] [facility] 2022-03-07 14:54:00 Outpatient Johnson, [facility] STLC [id number] [facility] 2021-06-19 14:23:23 Outpatient Johnson, [facility] ST[facility] [id number] [facility] 2021-06-19 14:12:47 Outpatient Johnson, [facility] STLC [id number] [facility] 2021-06-19 13:20:15 Outpatient Johnson, [facility] STLMLC [id number] [facility] 2021-06-19 12:29:42 Outpatient Johnson, [facility] STLC [id number] [facility] 2021-06-19 11:24:59 Outpatient Johnson, [facility] STLC [id number] [facility] 2021-06-19 11:16:25 Outpatient River Johnson STLMLC STLMLC [id number] [facility] 2024-06-22 00:00:00 2024-06-22 00:00:00 (TEL) STLMLC STLMLC [id number] [facility] 2024-06-22 00:00:00 2024-06-22 00:00:00 OFFICE VISIT ESTAB PT LEVEL 3 STLMLC STLMLC [id number] [facility] 2024-05-12 00:00:00 2024-05-12 00:00:00 OFFICE VISIT ESTAB PT LEVEL 3 STLMLC STLMLC [id number] [facility] 2024-05-12 00:00:00 2024-05-12 00:00:00 (TEL) STLMLC STLMLC [id number] [facility] 2024-02-03 00:00:00 2024-02-03 00:00:00 OFFICE VISIT ESTAB PT LEVEL 3 STLMLC STLMLC [id number] [facility] 2024-02-02 00:00:00 2024-02-02 00:00:00 (TEL) STLMLC STLMLC [id number] [facility] 2023-12-23 00:00:00 2023-12-23 00:00:00 (TEL) STLMLC STLMLC [id number] [facility] 2023-12-23 00:00:00 2023-12-23 00:00:00 OFFICE VISIT ESTAB PT LEVEL 3 STLMLC STLMLC [id number] [facility] 2023-11-11 00:00:00 2023-11-11 00:00:00 OFFICE VISIT ESTAB PT LEVEL 3 STLMLC STLMLC [id number] [facility] 2023-04-27 00:00:00 2023-04-27 00:00:00 OFFICE VISIT ESTAB PT LEVEL 3 STLMLC STLMLC [id number] [facility] 2023-01-07 00:00:00 2023-01-07 00:00:00 OFFICE VISIT ESTAB PT LEVEL 3 STLMLC STLMLC [id number] [facility] 2022-10-22 00:00:00 2022-10-22 00:00:00 OFFICE VISIT ESTAB PT LEVEL 3 STLMLC STLMLC [id number] [facility] 2022-09-08 00:00:00 2022-09-08 00:00:00 OFFICE VISIT ESTAB PT LEVEL 3 STLMLC STLMLC [id number] [facility] 2022-07-15 00:00:00 2022-07-15 00:00:00 (TEL) STLMLC STLMLC [id number] [facility] 2022-07-01 00:00:00 2022-07-01 00:00:00 OFFICE VISIT ESTAB PT LEVEL 1 STLMLC STLMLC [id number] [facility] 2022-06-30 00:00:00 2022-06-30 00:00:00 (TEL) STLMLC STLMLC [id number] [facility] 2022-06-30 00:00:00 2022-06-30 00:00:00 OFFICE VISIT ESTAB PT LEVEL 3 STLMLC STLMLC [id number] [facility] 2022-03-10 00:00:00 2022-03-10 00:00:00 OFFICE VISIT EST PT LEVEL 3 STLMLC STLMLC [id number] [facility] 2022-02-03 00:00:00 2022-02-03 00:00:00 (TEL) STLMLC STLMLC [id number] [facility] 2022-01-28 00:00:00 2022-01-28 00:00:00 (TEL) STLMLC STLMLC [id number] [facility] 2021-09-05 00:00:00 2021-09-05 00:00:00 (TEL) STLMLC STLMLC [id number] [facility] 2021-07-17 09:31:00 2021-07-17 12:33:00 Outpatient SYDNEY MILLS [facility] OPH [id number] [facility] 2021-07-17 09:31:00 2021-07-17 12:33:00 Hospital Encounter Sydney Cam [facility] [id number] [facility] 2021-07-17 10:55:00 2021-07-17 11:36:00 Surgery Sydney Cam [facility] [id number] [facility] 2021-07-15 16:00:00 2021-07-15 16:00:00 Outpatient SYDNEY MILLS [facility] [id number] [facility] 2021-07-12 16:15:00 2021-07-12 16:30:00 Cigarette Carton Sealer Visit Pob, Adc Lab Main Sydney Cam [facility] [id number] [facility] 2021-07-12 16:15:00 2021-07-12 16:15:00 Outpatient SYDNEY MILLS [facility] [id number] [facility] 2021-05-03 00:00:00 2021-05-03 00:00:00 OFFICE VISIT EST PT LEVEL 3 STLMLC STLMLC [id number] [facility] 2021-05-03 00:00:00 2021-05-03 00:00:00 (TEL) STLMLC STLMLC [id number] [facility] 2021-04-04 00:00:00 2021-04-04 00:00:00 OFFICE VISIT EST PT LEVEL 3 STLMLC [facility]LMLC [id number] [facility] 2021-01-10 00:00:00 2021-01-10 00:00:00 Outpatient STLMLC STLMLC [id number] [facility] 2020-11-20 00:00:00 2020-11-20 00:00:00 (TEL) STLMLC STLMLC [id number] [facility] 2020-07-06 00:00:00 2020-07-06 00:00:00 Outpatient STLMLC STLMLC [id number] [facility] 2020-06-14 00:00:00 2020-06-14 00:00:00 Outpatient STLMLC STLMLC [id number] [facility] 2019-10-27 11:51:00 2019-10-27 11:51:00 [place] [facility] [id number] [facility] 2019-10-25 09:30:00 2019-10-25 09:30:00 [facility] [address] [facility] [id number] [facility] 2019-10-24 15:45:00 2019-10-24 15:45:00 [place] [facility] [address] [facility] [place] [facility] [id number] [facility] 2019-10-24 14:40:00 2019-10-24 14:40:00 [facility] [place] [facility] [id number] [facility] 2019-08-23 13:30:00 2019-08-23 13:30:00 [facility] [place] [facility] [id number] [facility] Results Test Description Test Time Test Comments Results Result Co mments Source STREP A [id number] 00:00:00* Test Item Value Reference Range Interpretation Comme nts Result (test code = 88766-7) Negative SARS-COV 2 AntigenSARS-COV 2 Antigen
[2024-10-03] MEDS ORDERED: KETOROLAC 30 MG/ML INJ ONE (09:21)
[2024-10-03] MEDS ORDERED: COLCHICINE 0.6 MG TAB ONE (09:21)
--- NOTE | 2024-10-03 10:57 | RAD REPORT ---
EXAMINATION: XR Foot Left 3 View CLINICAL INDICATION: Female, 59 years old. [facility] MAIN PAIN Bed Name: 3 TECHNIQUE: 3 view radiographs of the left foot were obtained. COMPARISON: No prior exam. FINDINGS: No evidence of fracture or dislocation. Normal alignment. Mild interphalangeal joint degene rative changes. Other focal bone lesion. Soft tissues are unremarkable. No soft tissue swelling. No significant degenerative changes. IMPRESSION: No acute osseous abnormalities. Mild degenerative changes as above.
--- NOTE | 2024-10-03 11:15 | EDPHYS ---
Physician Documentation [facility] Name: Jocelyn White Age: 59 yrs Sex: Female : 1965 Arrival Date: 10/03/2024 Time: 08:38 Bed 9 Private MD: ED Physician Manoj Johns HPI: 10/03 10:41 This 59 yrs old Female presents to ER via Ambulatory with complaints of Feet kb Swelling. 10:41 Pt is a 59 year old female who presents for redness, swelling and pain to medial aspect kb of left great toe that started 4 days ago and has gotten progressively worse. Denies fever. . Historical: - Allergies: 08:49 No Known Allergies; ll1 - PMHx: 08:49 Hypertensive disorder; ll1 - Immunization history:: Adult Immunizations up to date. - Infectious Disease History:: Denies. - Social history:: Smoking status: Patient denies any tobacco usage or history of. ROS: 10:41 Constitutional: As per HPI kb Exam: 10:41 Constitutional: This is a well developed, well nourished patient who is awake, alert, kb and in no acute distress. Head/Face: Normocephalic, atraumatic. ENT: Moist Mucous membranes Cardiovascular: Regular rate Respiratory: Respirations even and unlabored. No increased work of breathing. Talking in full sentences Neuro: Awake and alert, GCS 15, oriented to person, place, time, and situation. 10:41 Musculoskeletal/extremity: Extremities: grossly normal except: noted in the medial aspect of left toes: erythema, pain, swelling, tenderness, ROM: intact in all extremities, Circulation is intact in all extremities. Sensation intact. Weight bearing: able to fully bear weight, Vital Signs: 08:47 BP 133 / 83; Pulse 76; Resp 16; Temp 98.5; Pulse Ox 100% ; Weight 74.84 kg; Height 5 ll1 ft. 6 in. ; Pain 8/10; 11:30 BP 139 / 88; Pulse 78; Resp 17; Pulse Ox 100% ; ll1 08:47 Body Mass Index 26.63 (74.84 kg, 167.64 cm) ll1 08:47 Pain Scale: Adult ll1 MDM: 08:46 Medical Screening Exam initiated kb 10:41 Data reviewed: vital signs, nurses notes. kb 10:44 Differential diagnosis: fracture, arthritis, gout, cellulitis. Independent kb interpretation of the following test(s) in the Emergency Department X-Ray: My interpretation is negative for fracture. Test considered but Not performed: Labs: cbc, cmp and uric acid level considered but result would not change plan of care. Counseling: I had a detailed discussion with the patient and/or guardian regarding the historical points, exam findings, and any diagnostic results supporting the discharge/admit diagnosis, radiology results, the need for outpatient follow up, a family practitioner, to return to the emergency department if symptoms worsen or persist or if there are any questions or concerns that arise at home. 11:16 I considered the following discharge prescriptions or medication management in the emergency department I discussed and recommended Over The Counter medications, Keflex and Diclofenac prescribed. 10/03 08:53 Order name: Foot Left 3 View XRAY; Complete Time: 11:14 kb Administered Medications: 09:26 Drug: Colcrys PO 1.2 mg PO once Route: PO; ll1 11:55 Follow up: Response: No adverse reaction; Pain is decreased ll1 09:26 Drug: Ketorolac IM 30 mg IM once Route: IM; Site: right deltoid; ll1 11:56 Follow up: Response: No adverse reaction; Pain is decreased ll1 Disposition: 18:22 I was immediately available on-site in the Emergency Department for consultation in the ms3 care of the patient. Disposition Summary: 10/03/24 11:15 Discharge Ordered Notes: Location: Home kb Condition: Stable kb Diagnosis - Local infection of the skin and subcutaneous tissue, unspecified kb Followup: kb - With: Emergency Department - When: As needed - Reason: Worsening of condition Followup: kb - With: Private Physician - When: 2 - 3 days - Reason: Recheck today's complaints, Continuance of care, Re-evaluation by your physician Discharge Instructions: - Discharge Summary Sheet kb - Cellulitis, Adult, [id number] kb - Gout, [id number] kb Forms: - Medication Reconciliation Form kb - Antibiotic Education kb - Prescription Opioid Use kb - Patient Portal Instructions kb - Leadership Thank You Letter kb - Work release form ll1 Prescriptions: - Cephalexin 500 mg Oral Capsule - take 1 capsule ORAL route every 8 hours for 10 days; 30 capsule; Refills: 0, kb Product Selection Permitted - Diclofenac Sodium 75 mg Oral tablet, delayed release (enteric coated) - take 1 tablet ORAL route 2 times per day As needed; 30 tablet; Refills: 0, kb Product Selection Permitted Signatures: Dispatcher [employer] Francie Abarca FNP-C FNP-Ckb Lewis, Lynsay, RN RN ll1 Manoj Johns DO DO ms3
--- NOTE | 2024-10-03 11:15 | ER ---
Nurse's Notes [facility] Name: Jocelyn White Age: 59 yrs Sex: Female : 1965 Arrival Date: 10/03/2024 Time: 08:38 Bed 9 Private MD: Diagnosis: Local infection of the skin and subcutaneous tissue, unspecified Presentation: 10/03 08:47 Chief complaint: Patient states: L foot was swollen, getting worse this past ll1 weekend. No fever. Coronavirus screen: Client denies travel out of the [place] in the last 14 days. At this time, the client does not indicate any symptoms associated with coronavirus-19. Ebola Screen: Patient denies travel to an Ebola-affected area in the 21 days before illness onset. Initial Sepsis Screen: Does the patient meet any 2 criteria? No. Patient's initial sepsis screen is negative. Does the patient have a suspected source of infection? No. Patient's initial sepsis screen is negative. Risk Assessment: Do you want to hurt yourself or someone else? Patient reports no desire to harm self or others. Onset of symptoms was September 29, 2024. 08:47 Method Of Arrival: Ambulatory ll1 08:47 Acuity: RADHA 4 ll1 Historical: - Allergies: 08:49 No Known Allergies; ll1 - PMHx: 08:49 Hypertensive disorder; ll1 - Immunization history:: Adult Immunizations up to date. - Infectious Disease History:: Denies. - Social history:: Smoking status: Patient denies any tobacco usage or history of. Screenin:33 [facility] ED Fall Risk Assessment (Adult) History of falling in the last 3 months, ll1 including since admission No falls in past 3 months (0 pts) Confusion or Disorientation No (0 pts) Intoxicated or Sedated No (0 pts) Impaired Gait No (0 pts) Mobility Assist Device Used No (0 pt) Altered Elimination No (0 pt) Score/Fall Risk Level 0 - 2 = Low Risk Maintained a safe environment, Hourly rounding (assess needs \T\ fall precautionary measures) done. Abuse screen: Denies threats or abuse. Nutritional screening: No deficits noted. Tuberculosis screening: No symptoms or risk factors identified. Assessment: 09:16 General: Appears uncomfortable, Behavior is calm, cooperative, appropriate for age. ll1 09:16 Derm:. Derm: pain and swelling to L foot. Musculoskeletal: Reports pain in left foot. ll1 09:17 Reassessment: No changes from previously documented assessment. Patient and/or family ll1 updated on plan of care and expected duration. Pain level reassessed. 11:33 Reassessment: No changes from previously documented assessment. Patient and/or family ll1 updated on plan of care and expected duration. Pain level reassessed. Patient is alert, oriented x 3, equal unlabored respirations, skin warm/dry/pink. Vital Signs: 08:47 BP 133 / 83; Pulse 76; Resp 16; Temp 98.5; Pulse Ox 100% ; Weight 74.84 kg; Height 5 ll1 ft. 6 in. ; Pain 8/10; 11:30 BP 139 / 88; Pulse 78; Resp 17; Pulse Ox 100% ; ll1 08:47 Body Mass Index 26.63 (74.84 kg, 167.64 cm) ll1 08:47 Pain Scale: Adult ll1 ED Course: 08:45 Patient arrived in ED. im 08:46 Francie Jarquin FNP-C is PHCP. kb 08:46 Manoj Johns DO is Attending Physician. kb 08:49 Triage completed. ll1 08:49 Arm band placed on. ll1 09:16 Patient placed in an exam room, on a stretcher. ll1 09:17 Lola Rivas, RN is Primary Nurse. ll1 09:20 Patient has correct armband on for positive identification. Bed in low position. ll1 Provided Education on: ER procedures and process. 09:41 Foot Left 3 View XRAY In Process Unspecified. EDMS 11:55 No provider procedures requiring assistance completed. Patient did not have IV access ll1 during this emergency room visit. Administered Medications: 09:26 Drug: Colcrys PO 1.2 mg PO once Route: PO; ll1 11:55 Follow up: Response: No adverse reaction; Pain is decreased ll1 09:26 Drug: Ketorolac IM 30 mg IM once Route: IM; Site: right deltoid; ll1 11:56 Follow up: Response: No adverse reaction; Pain is decreased ll1 Medication: 11:55 VIS not applicable for this client. ll1 Outcome: 11:15 Discharge ordered by . kb 11:33 Patient left the ED. ll1 11:55 Discharged to home ambulatory, ll1 11:55 Condition: stable 11:55 Discharge instructions given to patient, Instructed on discharge instructions, follow up and referral plans. medication usage, Demonstrated understanding of instructions, follow-up care, medications, Prescriptions given X 2, Signatures: Dispatcher [employer] EDFrancie Rock FNP-C FNP-Ckb Lewis, Lynsay, RN RN ll1 Hollie Ortiz Corrections: (The following items were deleted from the chart) :17 08:47 Resp 16bpm; 74.84 kg; Height 5 ft. 6 in.; BMI: 26.6; Pain 810, Adult; ll1 ll1 09:17 09:16 General: Appears uncomfortable, Behavior is calm, cooperative, appropriate for ll1 age, ll1
[2024-10-03 11:54] VITALS: BP 133/83; TEMP 98.5; O2SAT 100
== END 2024-10-03 11:33 | disposition home or self-care (01) ==
LOC: ER 08:38
DX: L08.9 Local infection of the skin and subcutaneous tissue, unspecified (principal)
CPT/HCPCS: 96372; 99284